=== PATIENT | female | born 1970 | race Caucasian/White ===

== ENCOUNTER 2022-09-17 08:37 | Outpatient (CLI) | payer OTHER, SELFPAY ==
[2022-09-17 19:22] LABS: Hematocrit 43.8 % (37.0-47.0); Hemoglobin 14.2 g/dL (12.0-15.0); Mean Corpuscular HGB Conc 32.4 g/dl (32-36); Mean Corpuscular Hemoglobin 30.7 pg (26-34); Mean Corpuscular Volume 94.8 fl (80-100); Mean Platelet Volume 10.1 fl (7.4-10.4); Platelet Count Result 242 k/mm3 (150-375); Red Blood Count 4.62 M/mm3 (4.2-5.4); Red Cell Distribution Width 12.6 % (11.5-14.5); White Blood Count 6.1 K/mm3 (4.5-10.0)
[2022-09-17 19:34] LABS: Hemoglobin A1C 5.4 % (<5.7)
[2022-09-17 19:50] LABS: Alanine Aminotransferase 22 U/L (6-35); Albumin Level 3.7 g/dL (3.5-5.1); Alkaline Phosphatase 65 U/L (38-126); Anion Gap 2 mmol/L (8-16); Aspartate Amino Transferase 25 U/L (14-36); Bilirubin,Total 0.8 mg/dL (0.2-1.3); Blood Urea Nitrogen 11 mg/dL (7-17); Calcium 8.3 mg/dL (8.4-10.2); Carbon Dioxide 27 mmol/L (22-30); Chloride 104 mmol/L (98-107); Cholesterol 231 mg/dL (0-200); Estimated Glomerular Filt Rate > 60; Glucose 85 mg/dL (65-110); HDL Direct 44 mg/dL; Potassium 3.8 mmol/L (3.4-5.0); Sodium 133 mmol/L (137-145); Triglycerides 106 mg/dL (<150)
[2022-09-17 20:03] LABS: Lymphocytes Absolute Manual 2.37 K/mm3 (1.1-4.5); Lymphocytes Percent Manual 39 % (18-44); Monocytes Absolute Manual 0.54 K/mm3 (0.1-0.90); Monocytes Percent Manual 9 % (3-9); Neutrophils Percent Manual 36 % (46-73); Total Cells Counted 100
[2022-09-17 20:04] LABS: Eosinophils Absolute Manual 0.97 K/mm3 (0.02-0.5); Eosinophils Percent Manual 16 % (0-4); LDL Cholesterol Direct 138 mg/dL; Platelet Estimate Adequate (Adequate); Schistocytes None Seen (NORMAL)
[2022-09-22 19:59] LABS: CRP, High Sensitivity 0.6 mg/L (***)
== END 2022-09-17 08:38 | disposition home or self-care (01) ==
LOC: ANHGOSHLAB 08:38
PROVIDERS: PCP Emergency Medicine; Visit Provider Emergency Medicine
DX: R07.9 Chest pain, unspecified (principal); R53.83 Other fatigue
CPT/HCPCS: 36415; 80053; 80061; 83036; 85025; 86141

== ENCOUNTER 2022-11-05 07:23 | Outpatient (CLI) | payer OTHER, SELFPAY ==
--- NOTE | 2022-11-05 07:43 | ECHO_ITS ---
Patient Info Name: Meggan Hutchinson Age: 51 years : 1970 Gender: Female Ht: 66 in Wt: 170 lbs BSA: 1.91 m2 HR: 62 bpm BP: 119 / 86 mmHg Heart Rhythm: Sinus Rhythm Exam Date: 11/05/2022 8:17 AM Exam Location: [facility] Patient Status: Outpatient Admit Date: 11/05/2022 Staff Ordering Physician: Ismael Donald MD Methods Analyst: Phong Medina, MEGHAN, RT Attending Provider: Ismael Donald MD Referring Physician: Shabana SINGLETARY; Exam Type: CA echo doppler color flow Study Info Indications R07.9 - Chest pain, unspecified Complete two-dimensional, color flow and Doppler transthoracic echocardiogram is performed. Strain analysis performed. Summary 1. Complete two-dimensional, color flow and Doppler transthoracic echocardiogram is performed. 2. Trivial amount of mitral valve regurgitation. 3. Otherwise unremarkable examination. Left Ventricle Left ventricular systolic function is normal, estimated at 55-60%. The left ventricular diastolic function is normal. Right Ventricle Right ventricular chamber dimension is normal. Left Atria Left atrial chamber dimension is normal. Right Atria Right atrial chamber dimension is normal. Aortic Valve The aortic valve is normal. Pulmonic Valve The pulmonic valve is normal. Mitral Valve The mitral valve has normal leaflets. There is trace mitral valve regurgitation. Tricuspid Valve The tricuspid valve leaflets are normal. Pericardium/Pleural The pericardium appears normal. Aorta The aortic root size at the sinus of Valsalva is normal. Left Ventricular Outflow Tract Name Value Normal LVOT 2D LVOT Diameter 2.0 cm LVOT Doppler LVOT Peak Gradient 3 mmHg LVOT Mean Gradient 2 mmHg LVOT VTI 20 cm LVOT VTI/AV VTI Ratio 0.9 LVOT Stroke Volume 62 ml LVOT CO 4.3 l/min LVOT CI 2.2 l/min/m2 Mitral Valve Name Value Normal MV Doppler MV Decel [place] 439 cm/s2 MV PHT 63 ms MV Area (PHT) 3.5 cm2 4.0-5.0 MV Diastolic Function MV E Peak Velocity 96 cm/s MV A Peak Velocity 80 cm/s MV E/A 1.2 MV Decel Time 219 ms MV Annular TDI MV E/e' (Septal) 12.4 <=8.0 MV E/e' (Lateral) 9.5 <=8.0 MV E/e' (Average) 10.9 Tricuspid Valve ------
--- NOTE | 2022-11-05 07:43 | EST_ITS ---
Patient Info Name: Meggan uHtchinson Age: 51 years : 1970 Gender: Female Ht: 66 in Wt: 170 lbs BSA: 1.91 m2 HR: 65 bpm BP: 116 / 77 mmHg Heart Rhythm: Sinus Rhythm Exam Date: 11/05/2022 8:57 AM Exam Location: [facility] Patient Status: Outpatient Admit Date: 11/05/2022 Staff Ordering Physician: Ismael Donald MD Attending Provider: Ismael Donald MD Exercise Technologist: Melva Maria CT Nurse: JONNY GRIFFITHS Exam Type: CA stress test treadmill Study Info Indications R07.9 - Chest pain, unspecified A treadmill exercise stress test was performed. Summary 1. Normal sinus rhythm. 2. Low QRS voltage. 3. No abnormal ST/T wave changes with exercise. 4. None. 5. Clinically and electrocardiographically negative exercise stress test at 95% of age predicted maximum heart rate. Protocol: [facility] ECG Details Stage: REST Duration (min): 0 min : 51 sec Speed (mph): 0.0 Grade (%): 0 HR (bpm): 67 SBP (mmHg): 116 DBP (mmHg): 77 METS: --- Stage: REST Duration (min): 12 min : 44 sec Speed (mph): 0.0 Grade (%): 0 HR (bpm): 69 SBP (mmHg): 116 DBP (mmHg): 77 METS: --- Stage: STAGE 1 Duration (min): 1 min : 0 sec Speed (mph): 1.7 Grade (%): 10 HR (bpm): 111 SBP (mmHg): 116 DBP (mmHg): 77 METS: --- Stage: STAGE 1 Duration (min): 2 min : 0 sec Speed (mph): 1.7 Grade (%): 10 HR (bpm): 117 SBP (mmHg): 116 DBP (mmHg): 77 METS: --- Stage: STAGE 1 Duration (min): 3 min : 0 sec Speed (mph): 1.7 Grade (%): 10 HR (bpm): 118 SBP (mmHg): 153 DBP (mmHg): 79 METS: --- Stage: STAGE 2 Duration (min): 1 min : 0 sec Speed (mph): 2.5 Grade (%): 12 HR (bpm): 134 SBP (mmHg): 153 DBP (mmHg): 79 METS: --- Stage: STAGE 2 Duration (min): 2 min : 0 sec Speed (mph): 2.5 Grade (%): 12 HR (bpm): 140 SBP (mmHg): 163 DBP (mmHg): 80 METS: --- Stage: STAGE 2 Duration (min): 3 min : 0 sec Speed (mph): 2.5 Grade (%): 12 HR (bpm): 147 SBP (mmHg): 163 DBP (mmHg): 80 METS: --- Stage: STAGE 3 Duration (min): 1 min : 0 sec Speed (mph): 3.4 Grade (%): 14 HR (bpm): 152 SBP (mmHg): 163 DBP (mmHg): 80 METS: --- Stage: STAGE 3 Duration (min): 2 min : 0 sec Speed (mph): 3.4 Grade (%): 14 HR (bpm): 160 SBP (mmHg): 164 DBP (mmHg): 71 METS: --- Stage: STAGE 3 Duration (min): 2 min : 2 sec Speed (mph): 3.4 Grade (%): 14 HR (bpm): 159 SBP (mmHg): 164 DBP (mmHg): 71 METS: --- Stage: RECOVERY Duration (min): 0 min : 57 sec Speed (mph): 0.0 Grade (%): 0 HR (bpm): 133 SBP (mmHg): 155 DBP (mmHg): 68 METS: --- Stage: RECOVERY Duration (min): 1 min : 57 sec Speed (mph): 0.0 Grade (%): 0 HR (bpm): 106
== END 2022-11-05 07:24 | disposition home or self-care (01) ==
PROVIDERS: PCP Emergency Medicine; Visit Provider Emergency Medicine
DX: R07.9 Chest pain, unspecified (principal)
CPT/HCPCS: 93017; 93306

== ENCOUNTER 2022-11-29 08:23 | Outpatient (NON) | payer OTHER, SELFPAY | END 2022-11-29 08:24 | disposition home or self-care (01) | LOC: ANHLAB 11-30 08:25 | PROVIDERS: PCP Emergency Medicine; Visit Provider Internal Medicine Gastroenterology | DX: Z12.11 Encounter for screening for malignant neoplasm of colon (principal); D12.5 Benign neoplasm of sigmoid colon | CPT/HCPCS: 88305 ==

== ENCOUNTER 2022-11-29 10:31 | Day surgery (SDC) | payer OTHER, SELFPAY ==
[2022-11-19 08:44] VITALS: BMI 27.3
[2022-11-29 10:47] VITALS: BP 123/66; PULSE 86; RESP 20; TEMP 36.7; O2SAT 100
[2022-11-29] MEDS: LACTATED RINGERS 1,000 ML 150 ML IV CONT (10:57)
--- NOTE | 2022-11-29 11:03 | WPDANESEPPF ---
Anes - Initial Pre Proc Eval Procedure: Operation Date: 11/29/22 14:00 Proposed Procedures p Screening Colonoscopy - Miguel Avina MD Date/Time: 11/29/22 11:03 Surgeon: Miguel Avina MD Pre Op Diagnosis: Neoplasm Screening Patient Data Age: 52 Gender: F Height: 1.68 m Weight: 77.8 kg Last Vital Signs Temp 36.7 C 11/29/22 10:47 Pulse 86 11/29/22 10:47 Resp 20 11/29/22 10:47 BP 123/66 11/29/22 10:47 Pulse Ox 100 11/29/22 10:47 O2 Del Method Room Air 11/29/22 10:47 Allergies Allergy/AdvReac Type Severity Reaction Status Date / Time No Known Allergies Allergy Mild Verified 11/29/22 10:46 Home Medications Medication Instructions Recorded Confirmed Type alprazolam 0.5 mg tablet 0.5 mg PO DAILY PRN anxiety #30 07/29/22 11/29/22 Rx tabs calcium carbonate 500 mg calcium 500 mg PO DAILY 09/03/22 11/29/22 History (1,250 mg) chewable tablet (Calcium 500) fexofenadine 180 mg tablet 180 mg PO DAILY 09/03/22 11/29/22 History (Mariluz Allergy) fluticasone propionate 50 1 spray intranasal DAILY 09/03/22 11/29/22 History mcg/actuation nasal spray,suspension (Flonase Allergy Relief) vitamin E (dl, acetate) 45 mg (100 45 mg PO DAILY 09/03/22 11/29/22 History unit) capsule methylprednisolone 4 mg tablets in See Rx Instructions PO PER PKG DIR 09/07/22 11/29/22 Rx a dose pack (Medrol (Mack)) #21 ea Patient hx anesthesia problems: none Family hx anesthesia problems: none Results Review: All pre-operative results and documents have been reviewed as part of the pre-operative evaluation. [facility] Past Medical History Medical History Abdominal mass (~2000) Generalized anxiety disorder Family History Family History Father Family history of elevated blood lipids Mother Family history of lung cancer Social History Social History Smoking status: Never smoker Alcohol intake: current Drinks per week: 4 Alcohol use details: wine Substance use: never Substance use type: does not use Lack of Transportation: No Lack of Food: Never True Current Housing: I Have Housing Concerned About Future Housing: No Difficulty Paying Gas/Electric Bills: No Difficulty Paying for Meds: No Currently Unemployed: No Education: Bachelor's Degree Difficulty w/ Childcare or Family Care: No Living arrangements: with family Spiritual care concerns: No Anes - Eval Final PreProcedure Day of Procedure 11/29/22 11:03 Patient weight: overweight Heart: regular rate and rhythm Lungs: clear to auscultation Airway: Mallampati scale class II Neurological: alert and oriented Last oral intake: >/= 8 hours ASA classification: II Emergent: no Anesthetic plan: proceed Anesthesia type and monitoring: general GIVS and standard monitoring Results Review: All pre-operative results and documents have been reviewed as part of the pre-operative evaluation. Informed Consent: The patient's anesthetic plan and its attendant risks and benefits were discussed with the patient/family/POA. Questions were solicited and answers provided to the satisfaction of the patient/family/POA.
--- NOTE | 2022-11-29 11:16 | PM.HPGS ---
History of Present Illness History of Present Illness Consent: Risks, benefits, and alternatives have been discussed and questions answered. Patient agrees to proceed with procedure. Chief complaint: Neoplasm Screening Narrative: Meggan Hutchinson is a 52 year old female here for first screening colonoscopy Review of Systems Constitutional: Constitutional: Denies headache(s) and Denies weakness Eyes: Eyes: Denies blurry vision ENT: Reports Normal hearing present, Denies headache(s) and Denies neck pain Cardiovascular: Cardiovascular: Denies chest pain and Denies dyspnea Respiratory: Respiratory: Denies dyspnea Gastrointestinal: Gastrointestinal: Reports no additional gastrointestinal complaints Genitourinary: Genitourinary: Denies dysuria Musculoskeletal: Musculoskeletal: Denies neck pain Integumentary/Breasts: Skin/Breast: Denies dry skin Neurologic: Reports Normal hearing present, Denies headache(s) and Denies weakness Psychiatric: Psychiatric: Denies anxiety Endocrine: Endocrine: Denies change in body appearance Hematologic/Lymphatic: Hematologic/Lymphatic: Denies easy bleeding Allergic/Immunologic: Allergic/Immunologic: Denies urticaria PMF Past Medical History Medical History (Updated 11/29/22 @ 11:17 by Miguel Avina MD) Abdominal mass (~2000) Colon cancer screening Generalized anxiety disorder Family History Family History Father Family history of elevated blood lipids Mother Family history of lung cancer Social History Social History Smoking status: Never smoker Alcohol intake: current Drinks per week: 4 Alcohol use details: wine Substance use: never Substance use type: does not use Lack of Transportation: No Lack of Food: Never True Current Housing: I Have Housing Concerned About Future Housing: No Difficulty Paying Gas/Electric Bills: No Difficulty Paying for Meds: No Currently Unemployed: No Education: Bachelor's Degree Difficulty w/ Childcare or Family Care: No Living arrangements: with family Spiritual care concerns: No Meds Home Medications and Allergies Home Medications Medication Instructions Recorded Confirmed Type alprazolam 0.5 mg tablet 0.5 mg PO DAILY PRN anxiety #30 07/29/22 11/29/22 Rx tabs calcium carbonate 500 mg calcium 500 mg PO DAILY 09/03/22 11/29/22 History (1,250 mg) chewable tablet (Calcium 500) fexofenadine 180 mg tablet 180 mg PO DAILY 09/03/22 11/29/22 History (Mariluz Allergy) fluticasone propionate 50 1 spray intranasal DAILY 09/03/22 11/29/22 History mcg/actuation nasal spray,suspension (Flonase Allergy Relief) vitamin E (dl, acetate) 45 mg (100 45 mg PO DAILY 09/03/22 11/29/22 History unit) capsule methylprednisolone 4 mg tablets in See Rx Instructions PO PER PKG DIR 09/07/22 11/29/22 Rx a dose pack (Medrol (Mack)) #21 ea Allergies Allergy/AdvReac Type Severity Reaction Status Date / Time No Known Allergies Allergy Mild Verified 11/29/22 10:46 Vital Signs Vital Signs - 24 hr 11/29/22 10:47 Temperature 98.0 F Pulse Rate 86 Respiratory Rate 20 Blood Pressure 123/66 Pulse Oximetry 100 Oxygen Delivery Room Air Exam Const: General: comfortable and no acute distress HENMT: Face/Nose/Sinus: Normal nares present Eyes: General: appearance normal, both eyes and all related structures Neck: Neck: no JVD Resp: Auscultation: clear to auscultation bilaterally Cardio: Rate: regular rate Rhythm: regular rhythm GI: Inspection: non-distended GI Palp: Yes Soft to palpation Skin: General skin exam: normal color Neuro: General: gait normal Speech: normal speech Extrem: General: normal to inspection Psych: Mental Status: mental status grossly normal Assessment and Plan Assessment and plan (1) Colon cancer screening:
[2022-11-29 11:36] VITALS: BP 113/73; PULSE 84; RESP 16; O2SAT 100
[2022-11-29 11:46] VITALS: BP 111/76; PULSE 64; RESP 16; O2SAT 100
--- NOTE | 2022-11-29 11:49 | WPDANESPN ---
Anes - Prog Note Post-Op Date/Time: 11/29/22 11:49 Cardiovascular status: normal Respiratory status: normal Airway patency: baseline Mental status: baseline Post-Op hydration status: normal Vital Signs: Last Vital Signs Temp 36.7 C 11/29/22 10:47 Pulse 86 11/29/22 10:47 Resp 20 11/29/22 10:47 BP 123/66 11/29/22 10:47 Pulse Ox 100 11/29/22 10:47 O2 Del Method Room Air 11/29/22 10:47 Pain Score (VAS): 0/10 I/O: Intake & Output 11/28/22 11/29/22 11/29/22 23:59 07:59 15:59 Intake Total 300 Balance 300 Patient Feedback: Patient satisfied with anesthetic care.
[2022-11-29 11:56] VITALS: BP 121/73; PULSE 63; RESP 18; O2SAT 100
== END 2022-11-29 12:14 | disposition home or self-care (01) ==
PROVIDERS: PCP Emergency Medicine; Visit Provider Internal Medicine Gastroenterology
PROC: 0DJD8ZZ Inspection of Lower Intestinal Tract, Via Natural or Artificial Opening Endoscopic (ICD-10-PCS; CPT 45378; principal; 2022-11-29 14:00)
DX: Z12.11 Encounter for screening for malignant neoplasm of colon (principal)
CPT/HCPCS: 45385

== ENCOUNTER 2023-09-30 13:36 | Outpatient (CLI) | payer OTHER, SELFPAY ==
[2023-09-30 18:10] LABS: Alanine Aminotransferase 12 U/L (6-35); Albumin Level 4.1 g/dL (3.5-5.1); Alkaline Phosphatase 66 U/L (38-126); Anion Gap 6 mmol/L (8-16); Aspartate Amino Transferase 26 U/L (14-36); Bilirubin,Total 0.7 mg/dL (0.2-1.3); Blood Urea Nitrogen 12 mg/dL (7-17); Calcium 9.1 mg/dL (8.4-10.2); Carbon Dioxide 27 mmol/L (22-30); Chloride 104 mmol/L (98-107); Estimated Glomerular Filt Rate > 60; Glucose 86 mg/dL (65-110); Potassium 4.1 mmol/L (3.4-5.0); Sodium 137 mmol/L (137-145)
== END 2023-09-30 13:37 | disposition home or self-care (01) ==
LOC: ANHGOSHLAB 13:37
PROVIDERS: PCP Emergency Medicine; Visit Provider Emergency Medicine
DX: E78.00 Pure hypercholesterolemia, unspecified (principal)
CPT/HCPCS: 36415; 80053

== ENCOUNTER 2024-01-30 05:52 | Day surgery (SDC) | payer OTHER, SELFPAY ==
[2023-12-08 13:07] VITALS: BMI 18.3
--- NOTE | 2024-01-24 14:42 | PM.HPGS ---
History of Present Illness History of Present Illness Consent: Risks, benefits, and alternatives have been discussed and questions answered. Patient agrees to proceed with procedure. Chief complaint: History of colon polyps Narrative: Meggan Hutchinson is a 53 year old female at colonoscopy with removal which was an adenoma with high-grade dysplasia. This was a little more than 1 year ago. She returns now for surveillance colonoscopy. Review of Systems Review of Systems: All systems reviewed & are unremarkable except as noted in HPI and below PMFSH Past Medical History Medical History Abdominal mass (~2000) Colon cancer screening Generalized anxiety disorder Family History Family History Father Family history of elevated blood lipids Mother Family history of lung cancer Social History Social History Smoking status: Never smoker Alcohol intake: current Drinks per week: 4 Alcohol use details: wine Substance use: never Substance use type: does not use Lack of Transportation: No Lack of Food: Never True Current Housing: I Have Housing Concerned About Future Housing: No Difficulty Paying Gas/Electric Bills: No Difficulty Paying for Meds: No Currently Unemployed: No Education: Bachelor's Degree Difficulty w/ Childcare or Family Care: No Living arrangements: with family Spiritual care concerns: No Meds Home Medications and Allergies Home Medications Medication Instructions Recorded Confirmed Type calcium carbonate (Calcium 500) 500 mg PO DAILY 09/03/22 01/30/24 History fexofenadine 180 mg tablet 180 mg PO DAILY 09/03/22 01/30/24 History (Mariluz Allergy) fluticasone propionate 50 1 spray intranasal DAILY 09/03/22 01/30/24 History mcg/actuation nasal spray,suspension (Flonase Allergy Relief) vitamin E (dl, acetate) 45 mg (100 45 mg PO DAILY 09/03/22 01/30/24 History unit) capsule cholecalciferol (vitamin D3) 25 25 mcg PO DAILY 09/08/23 01/30/24 History mcg (1,000 unit) capsule triamcinolone acetonide 0.1 % 1 applic topical DAILY #80 grams 09/08/23 01/30/24 Rx topical ointment alprazolam 0.5 mg tablet 0.5 mg PO DAILY PRN anxiety #30 01/23/24 01/30/24 Rx tabs Allergies Allergy/AdvReac Type Severity Reaction Status Date / Time No Known Allergies Allergy Mild Verified 01/30/24 06:13 Exam Resp: Auscultation: clear to auscultation bilaterally Cardio: Rate: regular rate Rhythm: regular rhythm GI: GI Palp: Yes Soft to palpation and No Tenderness to palpation present (GI) Assessment and Plan Assessment and plan (1) Colon cancer screening: Code(s): Z12.11 - Encounter for screening for malignant neoplasm of colon Status: Acute Assessment and Plan: Colonoscopy with possible biopsy or polypectomy or cautery or injection of substances.
[2024-01-30 06:16] VITALS: BP 126/94; PULSE 73; RESP 16; TEMP 36.1; O2SAT 100
--- NOTE | 2024-01-30 06:34 | WPDANESEPPF ---
Anes - Initial Pre Proc Eval Procedure: Operation Date: 01/30/24 07:30 Proposed Procedures p Diagnostic Colonoscopy - Yoel Alvarez MD Date/Time: 01/30/24 06:34 Surgeon: Yoel Alvarez MD Pre Op Diagnosis: History of colon polyps Patient Data Age: 53 Gender: F Height: 1.69 m Weight: 78 kg Last Vital Signs Temp 36.1 C L 01/30/24 06:16 Pulse 73 01/30/24 06:16 Resp 16 01/30/24 06:16 BP 126/94 H 01/30/24 06:16 Pulse Ox 100 01/30/24 06:16 O2 Del Method Room Air 01/30/24 06:16 Allergies Allergy/AdvReac Type Severity Reaction Status Date / Time No Known Allergies Allergy Mild Verified 01/30/24 06:13 Home Medications Medication Instructions Recorded Confirmed Type calcium carbonate (Calcium 500) 500 mg PO DAILY 09/03/22 01/30/24 History fexofenadine 180 mg tablet 180 mg PO DAILY 09/03/22 01/30/24 History (Mariluz Allergy) fluticasone propionate 50 1 spray intranasal DAILY 09/03/22 01/30/24 History mcg/actuation nasal spray,suspension (Flonase Allergy Relief) vitamin E (dl, acetate) 45 mg (100 45 mg PO DAILY 09/03/22 01/30/24 History unit) capsule cholecalciferol (vitamin D3) 25 25 mcg PO DAILY 09/08/23 01/30/24 History mcg (1,000 unit) capsule triamcinolone acetonide 0.1 % 1 applic topical DAILY #80 grams 09/08/23 01/30/24 Rx topical ointment alprazolam 0.5 mg tablet 0.5 mg PO DAILY PRN anxiety #30 01/23/24 01/30/24 Rx tabs Results Review: All pre-operative results and documents have been reviewed as part of the pre-operative evaluation. [facility] Past Medical History Medical History Abdominal mass (~2000) Colon cancer screening Generalized anxiety disorder Family History Family History Father Family history of elevated blood lipids Mother Family history of lung cancer Social History Social History Smoking status: Never smoker Alcohol intake: current Drinks per week: 4 Alcohol use details: wine Substance use: never Substance use type: does not use Lack of Transportation: No Lack of Food: Never True Current Housing: I Have Housing Concerned About Future Housing: No Difficulty Paying Gas/Electric Bills: No Difficulty Paying for Meds: No Currently Unemployed: No Education: Bachelor's Degree Difficulty w/ Childcare or Family Care: No Living arrangements: with family Spiritual care concerns: No Anes - Eval Final PreProcedure Day of Procedure 01/30/24 06:34 Patient weight: overweight Heart: regular rate and rhythm Lungs: clear to auscultation Airway: Mallampati scale class II Neurological: alert and oriented Last oral intake: >/= 8 hours ASA classification: II Emergent: no Anesthetic plan: proceed Anesthesia type and monitoring: general GIVS and standard monitoring Results Review: All pre-operative results and documents have been reviewed as part of the pre-operative evaluation. Informed Consent: The patient's anesthetic plan and its attendant risks and benefits were discussed with the patient/family/POA. Questions were solicited and answers provided to the satisfaction of the patient/family/POA.
[2024-01-30] MEDS: LACTATED RINGERS 1,000 ML 150 ML IV CONT (06:50)
--- NOTE | 2024-01-30 07:16 | WPDANESEPPF ---
Anes - Initial Pre Proc Eval Procedure: Operation Date: 01/30/24 07:30 Proposed Procedures p Diagnostic Colonoscopy - Yoel Alvarez MD Date/Time: 01/30/24 07:16 Surgeon: Yoel Alvarez MD Pre Op Diagnosis: History of colon polyps Patient Data Age: 53 Gender: F Height: 1.69 m Weight: 78 kg Last Vital Signs Temp 36.1 C L 01/30/24 06:16 Pulse 73 01/30/24 06:16 Resp 16 01/30/24 06:16 BP 126/94 H 01/30/24 06:16 Pulse Ox 100 01/30/24 06:16 O2 Del Method Room Air 01/30/24 06:16 Allergies Allergy/AdvReac Type Severity Reaction Status Date / Time No Known Allergies Allergy Mild Verified 01/30/24 06:13 Home Medications Medication Instructions Recorded Confirmed Type calcium carbonate (Calcium 500) 500 mg PO DAILY 09/03/22 01/30/24 History fexofenadine 180 mg tablet 180 mg PO DAILY 09/03/22 01/30/24 History (Mariluz Allergy) fluticasone propionate 50 1 spray intranasal DAILY 09/03/22 01/30/24 History mcg/actuation nasal spray,suspension (Flonase Allergy Relief) vitamin E (dl, acetate) 45 mg (100 45 mg PO DAILY 09/03/22 01/30/24 History unit) capsule cholecalciferol (vitamin D3) 25 25 mcg PO DAILY 09/08/23 01/30/24 History mcg (1,000 unit) capsule triamcinolone acetonide 0.1 % 1 applic topical DAILY #80 grams 09/08/23 01/30/24 Rx topical ointment alprazolam 0.5 mg tablet 0.5 mg PO DAILY PRN anxiety #30 01/23/24 01/30/24 Rx tabs Patient hx anesthesia problems: none Family hx anesthesia problems: none Results Review: All pre-operative results and documents have been reviewed as part of the pre-operative evaluation. [facility] Past Medical History Medical History Abdominal mass (~2000) Colon cancer screening Generalized anxiety disorder Family History Family History Father Family history of elevated blood lipids Mother Family history of lung cancer Social History Social History Smoking status: Never smoker Alcohol intake: current Drinks per week: 4 Alcohol use details: wine Substance use: never Substance use type: does not use Lack of Transportation: No Lack of Food: Never True Current Housing: I Have Housing Concerned About Future Housing: No Difficulty Paying Gas/Electric Bills: No Difficulty Paying for Meds: No Currently Unemployed: No Education: Bachelor's Degree Difficulty w/ Childcare or Family Care: No Living arrangements: with family Spiritual care concerns: No Anes - Eval Final PreProcedure Day of Procedure 01/30/24 07:16 Patient weight: overweight Heart: regular rate and rhythm Lungs: clear to auscultation Airway: Mallampati scale class II Neurological: alert and oriented Last oral intake: >/= 8 hours ASA classification: II Emergent: no Anesthetic plan: proceed Anesthesia type and monitoring: general GIVS and standard monitoring Results Review: All pre-operative results and documents have been reviewed as part of the pre-operative evaluation. Informed Consent: The patient's anesthetic plan and its attendant risks and benefits were discussed with the patient/family/POA. Questions were solicited and answers provided to the satisfaction of the patient/family/POA.
[2024-01-30 07:46] VITALS: BP 121/59; PULSE 71; RESP 16; O2SAT 99
[2024-01-30 07:56] VITALS: BP 114/78; PULSE 76; RESP 16; O2SAT 100
--- NOTE | 2024-01-30 07:56 | WPDANESPN ---
Anes - Prog Note Post-Op Date/Time: 01/30/24 07:56 Cardiovascular status: normal Respiratory status: normal Airway patency: baseline Mental status: baseline Post-Op hydration status: normal Vital Signs: Last Vital Signs Temp 36.1 C L 01/30/24 06:16 Pulse 71 01/30/24 07:46 Resp 16 01/30/24 07:46 BP 121/59 L 01/30/24 07:46 Pulse Ox 99 01/30/24 07:46 O2 Del Method Room Air 01/30/24 07:46 Pain Score (VAS): 0/10 I/O: Intake & Output 01/29/24 01/29/24 01/30/24 15:59 23:59 07:59 Intake Total 300 Balance 300 Patient Feedback: Patient satisfied with anesthetic care.
== END 2024-01-30 08:15 | disposition home or self-care (01) ==
PROVIDERS: PCP Emergency Medicine; Visit Provider Internal Medicine Gastroenterology
PROC: 0DJD8ZZ Inspection of Lower Intestinal Tract, Via Natural or Artificial Opening Endoscopic (ICD-10-PCS; CPT 45378; principal; 2024-01-30 07:30)
DX: Z86.010 Personal history of colon polyps (principal); K57.30 Diverticulosis of large intestine without perforation or abscess without bleeding; K64.8 Other hemorrhoids
CPT/HCPCS: 45378

== ENCOUNTER 2024-02-04 18:08 | Emergency (ER) | payer OTHER, SELFPAY ==
[2024-02-04 18:15] VITALS: BP 143/86; PULSE 83; RESP 20; TEMP 36.5; O2SAT 100
[2024-02-04 18:24] VITALS: O2SAT 100
--- NOTE | 2024-02-04 18:41 | ED.ALLEREA ---
HPI - Allergic Reaction General Chief complaint: Allergic Reaction Stated complaint: hives after taking flagyl Time Seen by Provider: 02/04/24 18:34 Source: patient and family Mode of arrival: ambulatory Limitations: no limitations History of Present Illness HPI narrative: patient presents with hives all body. Patient has been taking 500 mg b.i.d. p.o. Flagyl since Tuesday for a diagnosis of bacterial vaginosis. She has had bacterial vaginosis previously in taking this medication incident before. She also felt some slight difficulty clearing her throat denies any shortness breath. She denies any amira diarrhea although she did have some loose stool this morning which she had attributed to general side allergic reaction to the Flagyl Verses the fact she underwent a colonoscopy earlier in the week. Has no other known allergies Except to cat dander for which she takes Claritin every morning and Mariluz every evening. She denies any other changes in foods soaps, or detergents. No other household members with similar symptoms. It started on her arms. Patient had poison sumac past year without may be was this given it she was it quickly started spreading across her body. she took 50 mg of Benadryl just prior to coming to the emergency department she states that that was her 3rd such does today. Related Data Home Medications Medication Instructions Recorded Confirmed calcium carbonate (Calcium 500) 500 mg PO DAILY 09/03/22 01/30/24 fexofenadine 180 mg tablet 180 mg PO DAILY 09/03/22 01/30/24 (Mariluz Allergy) fluticasone propionate 50 1 spray intranasal DAILY 09/03/22 01/30/24 mcg/actuation nasal spray,suspension (Flonase Allergy Relief) vitamin E (dl, acetate) 45 mg (100 45 mg PO DAILY 09/03/22 01/30/24 unit) capsule cholecalciferol (vitamin D3) 25 25 mcg PO DAILY 09/08/23 01/30/24 mcg (1,000 unit) capsule Allergies Allergy/AdvReac Type Severity Reaction Status Date / Time metronidazole [From Flagyl] AdvReac Hives Verified 02/04/24 18:18 [facility] Past Medical History Medical History (Updated 02/05/24 @ 09:45 by Reyna Packer MD) Abdominal mass (~2000) Bacterial vaginosis Colon cancer screening Generalized anxiety disorder Surgical History Surgical History (Updated 02/05/24 @ 09:44 by Reyna Packer MD) History of colonoscopy January 2024 Family History Family History Father Family history of elevated blood lipids Mother Family history of lung cancer Social History Social History (Updated 02/05/24 @ 09:44 by Reyna Packer MD) Social History: Smoking status: Never smoker Alcohol intake: current Drinks per week: 4 Alcohol use details: wine Substance use: never Substance use type: does not use Lack of Transportation: No Lack of Food: Never True Current Housing: I Have Housing Concerned About Future Housing: No Difficulty Paying Gas/Electric Bills: No Difficulty Paying for Meds: No Currently Unemployed: No Education: Bachelor's Degree Difficulty w/ Childcare or Family Care: No Living arrangements: with family Spiritual care concerns: No Exam Narrative: GENERAL: Well-appearing, well-nourished, and in no acute distress. HEAD: Normocephalic, atraumatic. EYES: Non injected, non icteric ENT: Nares clear, no rhinorrhea or epistaxis. Normal posterior oropharynx without erythema, edema. patient does have a very long and slender uvula; notably no uvular edema NECK: Supple. CHEST: Speaking in full sentences. No respiratory distress. lungs clear to auscultation without bronchospasm or stridor. HEART: Regular rate and rhythm. . ABDOMEN: Soft, nondistended. EXTREMITIES: Normal range of motion. No edema. SKIN: Warm, dry. Scattered urticaria across bilateral lower extremities (especially proximal thighs) and to a lesser extent on arms. Also has these findings on bilater
[2024-02-04] MEDS: predniSONE 20 MG TABLET 60 MG PO (19:13)
[2024-02-04] MEDS: FAMOTIDINE 20 MG TABLET 40 MG PO (19:13)
[2024-02-04 20:29] VITALS: BP 129/67; PULSE 57; RESP 16; O2SAT 100
== END 2024-02-04 20:30 | disposition home or self-care (01) ==
PROVIDERS: Emergency Provider Student in an Organized Health Care Education/Training Program; PCP Emergency Medicine
DX: L50.0 Allergic urticaria (principal); T37.3X5A Adverse effect of other antiprotozoal drugs, initial encounter
CPT/HCPCS: 99283; A9270; J7512

== ENCOUNTER 2024-11-09 08:55 | Outpatient (CLI) | payer OTHER, SELFPAY ==
--- OUTSIDE RECORDS SUMMARY | 2024-11-09 09:15 | XMS_ITS | Encounter Summary ---
Author Organization [facility] Address [address] [place] [address] Care Team Providers Care Systems Designer Name Role Phone Hossein De Guzman MD Primary Care Provider [phone] Encounter Details Date Type Department Care Team (Late st Contact Info) Description 03/29/2006 Outpatient Historical [facility]'s 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
--- OUTSIDE RECORDS SUMMARY | 2024-11-09 09:15 | XMS_ITS | Encounter Summary ---
Author Organization [facility] Address [address] [place] [address] Care Team Providers Care College Instructor Name Role Phone Hossein De Guzman MD Primary Care Provider [phone] Encounter Details Date Type Department Care Team (Late st Contact Info) Description 11/25/2006 Outpatient Historical [facility]'s [facility] Medical [place] [address] [place] [address] Torie Puckett MD [address] [address] Social History Tobacco Use Types Packs/Day Years Used Date Smoking Tobacco: Never Assessed Comments Unknown Sex and Gender Information Value Date Recorded Sex Assigned at Not on file Legal Sex Female 3:05 AM GERIATRIC CARE MANAGER Gender Identity Not on file Sexual Orientation Not on file documented as of this encounter Plan of Treatment Not on file documented as of this encounter Visit Diagnoses Not on filedocumented in this encounter Care Teams College Instructor Relationship Specialty Start Date End Date Hossein De Guzman MD [address] [phone] PCP - General Family Practice 07/29/17 documented as of this encounter
--- OUTSIDE RECORDS SUMMARY | 2024-11-09 09:15 | XMS_ITS | Encounter Summary ---
Author Organization [facility] Address [address] [place] [address] Care Team Providers Care Airplane And Engine Inspector Name Role Phone Hossein De Guzman MD Primary Care Provider [phone] Encounter Details Date Type Department Care Team (Late st Contact Info) Description 10/25/2003 Outpatient Historical [facility]'s [facility] Medical [place] [address] [place] [address] Torie Puckett MD [address] [address] Social History Tobacco Use Types Packs/Day Years Used Date Smoking Tobacco: Never Assessed Comments Unknown Sex and Gender Information Value Date Recorded Sex Assigned at Not on file Legal Sex Female 3:05 AM AUTOMOBILE CLUB INFORMATION CLERK Gender Identity Not on file Sexual Orientation Not on file documented as of this encounter Plan of Treatment Not on file documented as of this encounter Visit Diagnoses Not on filedocumented in this encounter Care Teams Airplane And Engine Inspector Relationship Specialty Start Date End Date Hossein De Guzman MD [address] [place] [phone] PCP - General Family Practice 07/29/17 documented as of this encounter
--- OUTSIDE RECORDS SUMMARY | 2024-11-09 09:15 | XMS_ITS | Encounter Summary ---
Author Organization [facility] Address [address] [place] [address] Care Team Providers Care Film Flat Inspector Name Role Phone Hossein De Guzman MD Primary Care Provider [phone] Encounter Details Date Type Department Care Team (Late st Contact Info) Description 03/17/2007 Outpatient Historical [facility]'s [facility] Medical [place] [address] [place] [address] Torie Puckett MD [address] [address] Social History Tobacco Use Types Packs/Day Years Used Date Smoking Tobacco: Never Assessed Comments Unknown Sex and Gender Information Value Date Recorded Sex Assigned at Not on file Legal Sex Female 3:05 AM MILLED RUBBER TENDER Gender Identity Not on file Sexual Orientation Not on file documented as of this encounter Plan of Treatment Not on file documented as of this encounter Visit Diagnoses Not on filedocumented in this encounter Care Teams Film Flat Inspector Relationship Specialty Start Date End Date Hossein De Guzman MD [address] [place] [phone] PCP - General Family Practice 07/29/17 documented as of this encounter
--- OUTSIDE RECORDS SUMMARY | 2024-11-09 09:15 | XMS_ITS | Encounter Summary ---
Author Organization [facility] Address [address] [place] [address] Care Team Providers Care Appliance Adjuster Name Role Phone Hossein De Guzman MD Primary Care Provider [phone] Encounter Details Date Type Department Care Team (Late st Contact Info) Description 01/20/2007 Outpatient Historical [facility]'s [facility] Medical [place] [address] [place] [address] Torie Puckett MD [address] [address] Social History Tobacco Use Types Packs/Day Years Used Date Smoking Tobacco: Never Assessed Comments Unknown Sex and Gender Information Value Date Recorded Sex Assigned at Not on file Legal Sex Female 3:05 AM SACK KEEPER Gender Identity Not on file Sexual Orientation Not on file documented as of this encounter Plan of Treatment Not on file documented as of this encounter Visit Diagnoses Not on filedocumented in this encounter Care Teams Appliance Adjuster Relationship Specialty Start Date End Date Hossein De Guzman MD [address] [place] [phone] PCP - General Family Practice 07/29/17 documented as of this encounter
--- OUTSIDE RECORDS SUMMARY | 2024-11-09 09:15 | XMS_ITS | Encounter Summary ---
Author Organization [facility] Address [address] [place] [address] Care Team Providers Care Bridge Manager Name Role Phone Hossein De Guzman MD Primary Care Provider [phone] Encounter Details Date Type Department Care Team (Late st Contact Info) Description 12/01/1999 Outpatient Historical [facility]'s [facility] [address] [place] [address] Torie Puckett MD [address] [address] Social History Tobacco Use Types Packs/Day Years Used Date Smoking Tobacco: Never Assessed Comments Unknown Sex and Gender Information Value Date Recorded Sex Assigned at Not on file Legal Sex Female 3:05 AM FIREBRICK LAYER HELPER Gender Identity Not on file Sexual Orientation Not on file documented as of this encounter Plan of Treatment Not on file documented as of this encounter Visit Diagnoses Not on filedocumented in this encounter Care Teams Bridge Manager Relationship Specialty Start Date End Date Hossein De Guzman MD [address] [place] [address] PCP - General Family Practice 07/29/17 documented as of this encounter
--- OUTSIDE RECORDS SUMMARY | 2024-11-09 09:15 | XMS_ITS | Encounter Summary ---
Author Organization [facility] Address [address] [place] [address] Care Team Providers Care School Patrol Name Role Phone Hossein De Guzman MD Primary Care Provider [phone] Encounter Details Date Type Department Care Team (Late st Contact Info) Description 10/11/2000 Outpatient Historical [facility]'s [facility] Medical [place] [address] [place] [address] Torie Puckett MD [address] [address] Social History Tobacco Use Types Packs/Day Years Used Date Smoking Tobacco: Never Assessed Comments Unknown Sex and Gender Information Value Date Recorded Sex Assigned at Not on file Legal Sex Female 3:05 AM EMBEDDED SYSTEMS DESIGNER Gender Identity Not on file Sexual Orientation Not on file documented as of this encounter Plan of Treatment Not on file documented as of this encounter Visit Diagnoses Not on filedocumented in this encounter Care Teams School Patrol Relationship Specialty Start Date End Date Hossein De Guzman MD [address] [place] [phone] PCP - General Family Practice 07/29/17 documented as of this encounter
--- OUTSIDE RECORDS SUMMARY | 2024-11-09 09:15 | XMS_ITS | Encounter Summary ---
Author Organization [facility] Address [address] [place] [address] Care Team Providers Care Supervisory Lifeguard Name Role Phone Hossein De Guzman MD Primary Care Provider [phone] Encounter Details Date Type Department Care Team (Late st Contact Info) Description 12/23/2006 Outpatient Historical [facility]'s [facility] Medical [place] [address] [place] [address] Torie Puckett MD [address] [address] Social History Tobacco Use Types Packs/Day Years Used Date Smoking Tobacco: Never Assessed Comments Unknown Sex and Gender Information Value Date Recorded Sex Assigned at Not on file Legal Sex Female 3:05 AM LOCKSTITCH TUNNEL ELASTIC OPERATOR Gender Identity Not on file Sexual Orientation Not on file documented as of this encounter Plan of Treatment Not on file documented as of this encounter Visit Diagnoses Not on filedocumented in this encounter Care Teams Supervisory Lifeguard Relationship Specialty Start Date End Date Hossein De Guzman MD [address] [place] [address] PCP - General Family Practice 07/29/17 documented as of this encounter
--- OUTSIDE RECORDS SUMMARY | 2024-11-09 09:15 | XMS_ITS | Encounter Summary ---
Author Organization [facility] Address [address] [place] [address] Care Team Providers Care Quality Process Auditor Name Role Phone Hossein De Guzman MD Primary Care Provider [phone] Encounter Details Date Type Department Care Team (Late st Contact Info) Description 02/21/2003 Outpatient Historical [facility]'s [facility] Medical [place] [address] [place] [address] Torie Puckett MD [address] [address] Social History Tobacco Use Types Packs/Day Years Used Date Smoking Tobacco: Never Assessed Comments Unknown Sex and Gender Information Value Date Recorded Sex Assigned at Not on file Legal Sex Female 3:05 AM UPPER INSPECTOR Gender Identity Not on file Sexual Orientation Not on file documented as of this encounter Plan of Treatment Not on file documented as of this encounter Visit Diagnoses Not on filedocumented in this encounter Care Teams Quality Process Auditor Relationship Specialty Start Date End Date Hossein De Guzman MD [address] [place] [phone] PCP - General Family Practice 07/29/17 documented as of this encounter
--- OUTSIDE RECORDS SUMMARY | 2024-11-09 09:15 | XMS_ITS | Encounter Summary ---
Author Organization [facility] Address [address] [place] [address] Care Team Providers Care Pastry Sous Chef Name Role Phone Hossein De Guzman MD Primary Care Provider [phone] Encounter Details Date Type Department Care Team (Late st Contact Info) Description 11/21/2006 Outpatient Historical [facility] [address] [place] [address] Joshua Cantu MD [address] [facility] [address] [place] [address] Social History Tobacco Use Types Packs/Day Years Used Date Smoking Tobacco: Never Assessed Comments Unknown Sex and Gender Information Value Date Recorded Sex Assigned at Not on file Legal Sex Female 3:05 AM OPERATIONS ANALYST Gender Identity Not on file Sexual Orientation Not on file documented as of this encounter Plan of Treatment Not on file documented as of this encounter Visit Diagnoses Not on filedocumented in this encounter Care Teams Pastry Sous Chef Relationship Specialty Start Date End Date Hossein De Guzman MD [address] [place] [address] PCP - General Family Practice 07/29/17 documented as of this encounter
--- OUTSIDE RECORDS SUMMARY | 2024-11-09 09:15 | XMS_ITS | Encounter Summary ---
Author Organization [facility] Address [address] [place] [address] Care Team Providers Care Systems Program Manager Name Role Phone Hossein De Guzman MD Primary Care Provider [phone] Encounter Details Date Type Department Care Team (Latest Contact Info) Description 09/20/2000 Inpatient Historical [facility] Torie Puckett MD NO ADDRESS ON FILE Other specified disorder of peritoneum (Primary Dx) Social History Tobacco Use Types Packs/Day Years Used Date Smoking Tobacco: Never Assessed Comments Unknown Sex and Gender Information Value Date Recorded Sex Assigned at Not on file Legal Sex Female 3:05 AM LABORATORY EQUIPMENT INSTALLER Gender Identity Not on file Sexual Orientation Not on file documented as of this encounter Plan of Treatment Not on file documented as of this encounter Visit Diagnoses Diagnosis Other specified disorder of peritoneum- Primary documented in this encounter Care Teams Systems Program Manager Relationship Specialty Start Date End Date Hossein De Guzman MD [address] [place] [phone] PCP - General Family Practice 07/29/17 documented as of this encounter
--- OUTSIDE RECORDS SUMMARY | 2024-11-09 09:15 | XMS_ITS | Encounter Summary ---
Author Organization [facility] Address [address] [place] [address] Care Team Providers Care Supervisor Fruit Grading Name Role Phone Hossein De Guzman MD Primary Care Provider [phone] Encounter Details Date Type Department Care Team (Late st Contact Info) Description 03/25/2004 Outpatient Historical [facility] Medical [place] [address] [place] [address] Torie Puckett MD [address] [address] Social History Tobacco Use Types Packs/Day Years Used Date Smoking Tobacco: Never Assessed Comments Unknown Sex and Gender Information Value Date Recorded Sex Assigned at Not on file Legal Sex Female 3:05 AM DISBURSING OFFICER Gender Identity Not on file Sexual Orientation Not on file documented as of this encounter Plan of Treatment Not on file documented as of this encounter Visit Diagnoses Not on filedocumented in this encounter Care Teams Supervisor Fruit Grading Relationship Specialty Start Date End Date Hossein De Guzman MD [address] [place] [phone] PCP - General Family Practice 07/29/17 documented as of this encounter
--- OUTSIDE RECORDS SUMMARY | 2024-11-09 09:15 | XMS_ITS | Encounter Summary ---
Author Organization [facility] Address [address] [place] [address] Care Team Providers Care Test Puller Name Role Phone Hossein De Guzman MD Primary Care Provider [phone] Encounter Details Date Type Department Care Team (Latest Contact Info) Description 11/17/2006 Outpatient Historical [facility] Torie Puckett MD NO ADDRESS ON FILE Elderly Multigravida with Antepartum Condition or Complication (Primary Dx) Social History Tobacco Use Types Packs/Day Years Used Date Smoking Tobacco: Never Assessed Comments Unknown Sex and Gender Information Value Date Recorded Sex Assigned at Not on file Legal Sex Female 3:05 AM LOADING INSPECTOR Gender Identity Not on file Sexual Orientation Not on file documented as of this encounter Plan of Treatment Not on file documented as of this encounter Visit Diagnoses Diagnosis Elderly multigravida with antepartum condition or complication- Primary documented in this encounter Care Teams Test Puller Relationship Specialty Start Date End Date Hossein De Guzman MD [address] [place] [phone] PCP - General Family Practice 07/29/17 documented as of this encounter
--- OUTSIDE RECORDS SUMMARY | 2024-11-09 09:15 | XMS_ITS | Encounter Summary ---
Author Organization [facility] Address [address] [place] [address] Care Team Providers Care Military Source Operations Specialist Name Role Phone Hossein De Guzman MD Primary Care Provider [phone] Encounter Details Date Type Department Care Team (Late st Contact Info) Description 08/18/2000 Outpatient Historical [facility]'s [facility] Medical [place] [address] [place] [address] Torie Puckett MD [address] [address] Social History Tobacco Use Types Packs/Day Years Used Date Smoking Tobacco: Never Assessed Comments Unknown Sex and Gender Information Value Date Recorded Sex Assigned at Not on file Legal Sex Female 3:05 AM MATERIALS SCIENTIST Gender Identity Not on file Sexual Orientation Not on file documented as of this encounter Plan of Treatment Not on file documented as of this encounter Visit Diagnoses Not on filedocumented in this encounter Care Teams Military Source Operations Specialist Relationship Specialty Start Date End Date Hossein De Guzman MD [address] [place] [phone] PCP - General Family Practice 07/29/17 documented as of this encounter
--- OUTSIDE RECORDS SUMMARY | 2024-11-09 09:15 | XMS_ITS | Encounter Summary ---
Author Organization [facility] Address [address] [place] [address] Care Team Providers Care Multi Spindle Operator Name Role Phone Hossein De Guzman MD Primary Care Provider [phone] Encounter Details Date Type Department Care Team (Late st Contact Info) Description 02/09/2002 Outpatient Historical [facility]'s [facility] Medical [place] [address] [place] [address] Torie Puckett MD [address] [address] Social History Tobacco Use Types Packs/Day Years Used Date Smoking Tobacco: Never Assessed Comments Unknown Sex and Gender Information Value Date Recorded Sex Assigned at Not on file Legal Sex Female 3:05 AM CONVOLUTE TUBE WINDER Gender Identity Not on file Sexual Orientation Not on file documented as of this encounter Plan of Treatment Not on file documented as of this encounter Visit Diagnoses Not on filedocumented in this encounter Care Teams Multi Spindle Operator Relationship Specialty Start Date End Date Hossein De Guzman MD [address] [place] [phone] PCP - General Family Practice 07/29/17 documented as of this encounter
--- OUTSIDE RECORDS SUMMARY | 2024-11-09 09:15 | XMS_ITS | Encounter Summary ---
Author Organization [facility] Address [address] [place] [address] Care Team Providers Care Front Desk Monitor Name Role Phone Hossein De Guzman MD Primary Care Provider [phone] Encounter Details Date Type Department Care Team (Late st Contact Info) Description 01/20/2007 Outpatient [facility] Torie Puckett MD NO ADDRESS ON FILE Social History Tobacco Use Types Packs/Day Years Used Date Smoking Tobacco: Never Assessed Comments Unknown Sex and Gender Information Value Date Recorded Sex Assigned at Not on file Legal Sex Female 3:05 AM BICYCLE MESSENGER Gender Identity Not on file Sexual Orientation Not on file documented as of this encounter Plan of Treatment Not on file documented as of this encounter Visit Diagnoses Not on filedocumented in this encounter Care Teams Front Desk Monitor Relationship Specialty Start Date End Date Hossein De Guzman MD [address] [place] [phone] PCP - General Family Practice 07/29/17 documented as of this encounter
--- OUTSIDE RECORDS SUMMARY | 2024-11-09 09:15 | XMS_ITS | Encounter Summary ---
Author Organization [facility] Address [address] [place] [address] Care Team Providers Care Ancillary Services Manager Name Role Phone Hossein De Guzman MD Primary Care Provider [phone] Encounter Details Date Type Department Care Team (Late st Contact Info) Description 07/26/2003 Outpatient Historical [facility] Medical [place] [address] [place] [address] Torie Puckett MD [address] [address] Social History Tobacco Use Types Packs/Day Years Used Date Smoking Tobacco: Never Assessed Comments Unknown Sex and Gender Information Value Date Recorded Sex Assigned at Not on file Legal Sex Female 3:05 AM CARDIAC SPECIALIST Gender Identity Not on file Sexual Orientation Not on file documented as of this encounter Plan of Treatment Not on file documented as of this encounter Visit Diagnoses Not on filedocumented in this encounter Care Teams Ancillary Services Manager Relationship Specialty Start Date End Date Hossein De Guzman MD [address] [place] [phone] PCP - General Family Practice 07/29/17 documented as of this encounter
--- OUTSIDE RECORDS SUMMARY | 2024-11-09 09:15 | XMS_ITS | Encounter Summary ---
Author Organization [facility] Address [address] [place] [address] Care Team Providers Care Office System Analyst Name Role Phone Hossein De Guzman MD Primary Care Provider [phone] Encounter Details Date Type Department Care Team (Late st Contact Info) Description 02/21/2001 Outpatient Historical [facility] Medical [place] [address] [place] [address] Torie Puckett MD [address] [address] Social History Tobacco Use Types Packs/Day Years Used Date Smoking Tobacco: Never Assessed Comments Unknown Sex and Gender Information Value Date Recorded Sex Assigned at Not on file 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
--- OUTSIDE RECORDS SUMMARY | 2024-11-09 09:15 | XMS_ITS | Encounter Summary ---
Author Organization [facility] Address [address] [place] [address] Care Team Providers Care Slab Lifting Supervisor Name Role Phone Hossein De Guzman MD Primary Care Provider [phone] Encounter Details Date Type Department Care Team (Late st Contact Info) Description 12/27/2003 Outpatient Historical [facility] Medical [place] [address] [place] [address] Torie Puckett MD [address] [address] Social History Tobacco Use Types Packs/Day Years Used Date Smoking Tobacco: Never Assessed Comments Unknown Sex and Gender Information Value Date Recorded Sex Assigned at Not on file Legal Sex Female 3:05 AM TICKET MAKER Gender Identity Not on file Sexual Orientation Not on file documented as of this encounter Plan of Treatment Not on file documented as of this encounter Visit Diagnoses Not on filedocumented in this encounter Care Teams Slab Lifting Supervisor Relationship Specialty Start Date End Date Hossein De Guzman MD [address] [place] [phone] PCP - General Family Practice 07/29/17 documented as of this encounter
--- OUTSIDE RECORDS SUMMARY | 2024-11-09 09:15 | XMS_ITS | Encounter Summary ---
Author Organization [facility] Address [address] [place] [address] Care Team Providers Care Lead Sustainability Specialist Name Role Phone Hossein De Guzman MD Primary Care Provider [phone] Encounter Details Date Type Department Care Team (Late st Contact Info) Description 10/27/2006 Outpatient Historical [facility] Medical [place] [address] [place] [address] Torie Puckett MD [address] [address] Social History Tobacco Use Types Packs/Day Years Used Date Smoking Tobacco: Never Assessed Comments Unknown Sex and Gender Information Value Date Recorded Sex Assigned at Not on file Legal Sex Female 3:05 AM STAFF APPRAISER Gender Identity Not on file Sexual Orientation Not on file documented as of this encounter Plan of Treatment Not on file documented as of this encounter Visit Diagnoses Not on filedocumented in this encounter Care Teams Lead Sustainability Specialist Relationship Specialty Start Date End Date Hossein De Guzman MD [address] [place] [phone] PCP - General Family Practice 07/29/17 documented as of this encounter
--- OUTSIDE RECORDS SUMMARY | 2024-11-09 09:15 | XMS_ITS | Encounter Summary ---
Author Organization [facility] Address [address] [place] [address] Care Team Providers Care Guest Room Attendant Name Role Phone Hossein De Guzman MD Primary Care Provider [phone] Encounter Details Date Type Department Care Team (Late st Contact Info) Description 01/24/2004 Outpatient Historical [facility]'s [facility] Medical [place] [address] [place] [address] Torie Puckett MD [address] [address] Social History Tobacco Use Types Packs/Day Years Used Date Smoking Tobacco: Never Assessed Comments Unknown Sex and Gender Information Value Date Recorded Sex Assigned at Not on file Legal Sex Female 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
--- OUTSIDE RECORDS SUMMARY | 2024-11-09 09:15 | XMS_ITS | Encounter Summary ---
Author Organization [facility] Address [address] [place] [address] Care Team Providers Care Yarn Washer Name Role Phone Hossein De Guzman MD Primary Care Provider [phone] Encounter Details Date Type Department Care Team (Late st Contact Info) Description 11/29/2003 Outpatient Historical [facility] Medical [place] [address] [place] [address] Torie Puckett MD [address] [address] Social History Tobacco Use Types Packs/Day Years Used Date Smoking Tobacco: Never Assessed Comments Unknown Sex and Gender Information Value Date Recorded Sex Assigned at Not on file Legal Sex Female 3:05 AM SEMICONDUCTOR PACKAGES LEAK TESTER Gender Identity Not on file Sexual Orientation Not on file documented as of this encounter Plan of Treatment Not on file documented as of this encounter Visit Diagnoses Not on filedocumented in this encounter Care Teams Yarn Washer Relationship Specialty Start Date End Date Hossein De Guzman MD [address] [place] [place] [phone] PCP - General Family Practice 07/29/17 documented as of this encounter
--- OUTSIDE RECORDS SUMMARY | 2024-11-09 09:15 | XMS_ITS | Encounter Summary ---
Author Organization [facility] Address [address] [place] [address] Care Team Providers Care Offset Printing Operator Name Role Phone Hossein De Guzman MD Primary Care Provider [phone] Encounter Details Date Type Department Care Team (Late st Contact Info) Description 02/06/2004 Outpatient Historical [facility] Medical [place] [address] [place] [address] Torie Puckett MD [address] [address] Social History Tobacco Use Types Packs/Day Years Used Date Smoking Tobacco: Never Assessed Comments Unknown Sex and Gender Information Value Date Recorded Sex Assigned at Not on file Legal Sex Female 3:05 AM FUNDRAISING COORDINATOR Gender Identity Not on file Sexual Orientation Not on file documented as of this encounter Plan of Treatment Not on file documented as of this encounter Visit Diagnoses Not on filedocumented in this encounter Care Teams Offset Printing Operator Relationship Specialty Start Date End Date Hossein De Guzman MD [address] [place] [phone] PCP - General Family Practice 07/29/17 documented as of this encounter
--- OUTSIDE RECORDS SUMMARY | 2024-11-09 09:15 | XMS_ITS | Clinical Summary ---
Author Organization [facility] Address [address] [place] [address] Phone Care Team Providers Care Kitchen Worker Name Role Phone Hossein De Guzman MD Primary Care Provider [phone] Allergies No known active allergies Medications FLUTICASONE PROPIONATE (FLONASE BOTH NOSTRIL) Administer in each nostril. Active CETIRIZINE HCL (ZYRTEC ORAL) Take by mouth. A ctive ALPRAZolam (XANAX) 0.5 mg tablet 6 Active VITAMIN E ORAL Take by mouth. Active fluconazole (DIFLUCAN) 150 mg tablet Take 1 Tablet (150mg) by mouth once. If symptoms persist after 5 days take 2nd tablet (150mg). 2 Tablet 1 0 Active fluconazole (DIFLUCAN) 150 mg tablet Take one tablet by mouth today and one tablet by mouth in 3 days. 2 Tablet 1 Active Active Problems Problem Noted Date Diagnosed Date Fibroid 08/05/2014 Resolved Problems Problem Noted Date Diagnosed Date Resolved Date IUD (intrauterine device) in place 04/26/2014 04/19/2016 Overview (04/26/2014): S/P ParaGard 11/2012 Vaginal itching 09/25/2008 03/26/2016 Family History Medical History Relation Name Comments Hypertension Brother Liver Disease Father alcoholic cirr hosis Heart Attack Maternal Grandfather Heart Disease Maternal Grandfather Other Maternal Grandmother brain t umor High Cholesterol Mother Lung Cancer Mother Cancer Paternal Grandfather non hod gkins lymphoma Alzheimer's Disease Paternal Grandmother Relation Name Status Comments Brother Alive Father Maternal Grandfather Maternal Grandmother Mother Alive Paternal Grandfather Paternal Grandmother Social History Tobacco Use Types Packs/Day Years Used Date Smoking Tobacco: Never Smokeless Tobacco: Never Alcohol Use Standard Drinks/Week Comments Yes 2 (1 standard drink = 0.6 oz pur e alcohol) rare occasion Comments No Sex and Gender Information Value Date Recorded Sex Assigned at Not on file Legal Sex Female 3:05 AM ACCOUNTING POLICY CONSULTANT Gender Identity Not on file Sexual Orientation Not on file Last Filed Vital Signs Vital Sign Reading Time Taken Comments Blood Pressure 117/77 02/21/2020 3:44 PM CDT Pulse 71 05/25/2019 9:11 AM CDT Temperature - - Respiratory Rate - - Oxygen Saturation - - Inhaled Oxygen Concentration - - Weight 68.1 kg (150 lb 3.2 oz) 02/21/2020 3:44 P M CDT Height 169.5 cm (5' 6.75 ) 02/21/2020 3:44 PM CD T Body Mass Index 23.7 02/21/2020 3:44 PM CDT Plan of Treatment Health Maintenance Due Date Last Done Comments DTAP/TDAP/TD VACCINES (1 - Tdap) 1988 HEPATITIS B VACCINES (1 of 3 - 19+ 3-dose series) 1988 COLORECTAL SCREENING 2014 Colorectal Cancer Screening 2014 FIT-DNA Q 3 years 2014 FIT/FOBT Q 1 year 2014 Flex Sig/CT Colonography Q 5 years 2014 ZOSTER VACCINE (1 of 2) 11/14/2019 BREAST CANCER SCREENING 09/18/2021 09/18/19 21, 09/07/2018, 06/16/2017, Additional history exists PAP SMEAR 05/25/2022 05/25/2019, 04/16, 04/14/2017, Additional history exists PAP SMEAR 05/25/2022 05/25/2019, 04/16, 04/14/2017, Additional history exists CERVICAL CANCER SCREENING 05/12/2023 HPV/Cotest (30-65) 05/12/2023 05/12/2018, 0 04/14/2017, 04/08/2016, Additional history exists INFLUENZA VACCINE (#1) 2024 PNEUMOCOCCAL VACCINE 0-49 YEARS Aged Out No longer eligible based on patient's age to complete this topic Procedures Procedure Name Priority Date/Time Associated Diagnosis Comments MAMMO 3D WALLY SCREEN BILAT W OR WO CAD Routine 09/18/2020 Well woman exam with routine gynecological exam Screening for breast cancer CERV/VAG CYTO AGE BASED SCREEN PAP Routine 05/25/2019 9:49 AM CDT Well woman exam with routine gynecological exam Screening for malignant neoplasm of cervix Special screening examination for human papillomavirus (HPV) CERV/VAG CYTO SCREEN PAP RLFX HPV Routine 05/12/2018 11:16 AM CDT Well woman exam with routine gynecological exam Screening for malignant neoplasm of cervix Special screening examination for human papillomavirus (HPV) from Last 3 Months or Most Recently Relevant to Health Maintenance Results * MAMMO SCRN BILAT 3D WALLY W OR WO CAD (09/18/2020) Anatomical Region Laterality Modality Breast Bilateral Mammography Jada Portillo HOUSEKEEPING ASSISTANT MAMMO ORDERABLES Final Res ult * CERV/VAG CYTO AGE BASED SCREEN PAP (05/25/2019 9:49 AM CDT) COMMENT (PAP): SEE COMMENT 8:32 AM CDT [facility] Comment: This order for age-based cervical cancer and STI screening follows ACOG guidelines(PB 168, 140, UAG082). See individual assays for performing site location. CLINICAL INFORMATION HEALTHY 05/30/2019 8:32 AM CDT [facility] LAST MENSTRUAL PERIOD Information not provided 05/30/2019 8:32 AM CDT [facility] PREV PAP: 05/12/18 NIL NEG HPV HX 05/30/2019 8:32 AM CDT [facility] PREV BX: Information not provided 05/30/2019 8:32 AM CDT [facility] SOURCE Endocervix 05/30/2019 8:32 AM CDT [facility] ADEQUACY: SEE COMMENT 05/30/2019 8:32 AM CDT [facility] Comment: Satisfactory for evaluation. Endocervical/transformation zone component absent. Age and/or menstrual status not provided PAP INTERP Negative for intraepithelial lesion or malignancy. 05/30/2019 8:32 AM CDT [facility] CYTOLOGY INFECTION Fungal organisms morphologically consistent with Sonja spp. 05/30/2019 8:32 AM CDT [facility] COMMENT This Pap test has been evaluated with computer assisted technology. 05/30/2019 8:32 AM CDT [facility] SENIOR SALES ASSOCIATE: SEE COMMENT 2018 8:32 AM CDT [facility] Comment: LMT, CT(ASCP) CT screening location: [place] [address] [address] [address] EXPLANATORY NOTE SEE COMMENT 019 8:32 AM CDT [facility] Comment: EXPLANATORY NOTE: The Pap is a screening test for cervical cancer. It is not a diagnostic test and is subject to false negative and false positive results. It is most reliable when a satisfactory sample, regularly obtained, is submitted with relevant clinical findings and history, and when the Pap result is evaluated along with historic and current clinical information. HPV E6/E7 Not Detected Not Detected 05/30/2019 8:32 AM CDT [facility] Comment: This test was performed using the APTIMA HPV Assay ([employer] This assay detects E6/E7 viral messenger RNA (mRNA) from 14 high-risk HPV types (16,18,31,33,35,39,45,51,52,56,58,59,66,68). The analytical performance characteristics of this assay have been determined by [employer]. The modifications have not been cleared or approved by the FDA. This assay has been validated pursuant to the CLIA regulations and is used for clinical purposes. Genital SWAB OF ENDOCERVIX / Unknown Collection / Unknown 05/25/2019 9:49 AM CDT 05/25/2019 12:28 PM CDT Narrative [facility] - 05/30/2019 8:32 AM CDT Performing Organization Information: Site ID: [id number] [facility] Address: [address] [address] Director: Bertin Lamas D.O., MPH Site ID: [place] [facility] Address: [address] [address] [address] Director: Ag Huynh Jada Portillo NP PATHOLOGY/CYTOLOGY ORDERAB LES Final Result [facility] [phone] * CERV/VAG CYTO SCREEN PAP RLFX HPV (05/12/2018 11:16 AM CDT) CLINICAL INFORMATION SEE COMMENT 05/16/2018 8:11 PM CDT [facility] Comment:Information not prov ided LAST MENSTRUAL PERIOD SEE COMMENT 05/16/2018 8:11 PM CDT [facility] Comment:Information not prov ided PREV PAP: SEE COMMENT 05/16/2018 8:11 PM CDT [facility] Comment:Information not prov ided PREV BX: SEE COMMENT 05/16/2018 8:11 PM CDT [facility] Comment:Information not prov ided SOURCE Endocervix 05/16/2018 8:11 PM CDT [facility] ADEQUACY: SEE COMMENT 05/16/2018 8:11 PM CDT [facility] Comment: Satisfactory for evaluation. Endocervical/transformation zone component present. Age and/or menstrual status not provided PAP INTERP SEE COMMENT 05/16/2018 8:11 PM CDT [facility] Comment:Negative for intraep ithelial lesion or malignancy. CYTOLOGY INFECTION SEE COMMENT 05/16 8:11 PM CDT [facility] Comment: Fungal organisms morphologically consistent with Sonja spp. COMMENT SEE COMMENT 05/16/2018 8:11 PM CDT [facility] Comment: This Pap test has been evaluated with computer assisted technology. SENIOR SALES ASSOCIATE: SEE COMMENT 2017 8:11 PM CDT [facility] Comment: ABC, CT(ASCP) CT screening location: [place] [address] [place] [address] EXPLANATORY NOTE SEE COMMENT 018 8:11 PM CDT [facility] Comment: EXPLANATORY NOTE: The Pap is a screening test for cervical cancer. It is not a diagnostic test and is subject to false negative and false positive results. It is most reliable when a satisfactory sample, regularly obtained, is submitted with relevant clinical findings and history, and when the Pap result is evaluated along with historic and current clinical information. Genital SWAB OF ENDOCERVIX / Unknown Collection / Unknown 05/12/2018 11:16 AM CDT 05/12/2018 4:13 PM CDT Narrative [facility] - 05/16/2018 8:11 PM CDT Performing Organization Information: Site ID: [place] [facility] Address: [address] [address] [address] Director: Ag Huynh Jada Portillo HOUSEKEEPING ASSISTANT PATHOLOGY/CYTOLOGY ORDERAB LES Final Result [facility] from Last 3 Months or Most Recently Relevant to Health Maintenance Insurance [facility] [id number] Care Teams Kitchen Worker Relationship Specialty Start Date End Date Hossein De Guzman MD [address] [place] [phone] PCP - General Family Practice 07/29/17
--- OUTSIDE RECORDS SUMMARY | 2024-11-09 09:15 | XMS_ITS | Encounter Summary ---
Author Organization [facility] Address [address] [place] [address] Care Team Providers Care Driver Examiner Name Role Phone Hossein De Guzman MD Primary Care Provider [phone] Encounter Details Date Type Department Care Team (Late st Contact Info) Description 09/29/2004 Outpatient Historical [facility] [place] [facility] [address] [place] [address] Torie Puckett MD [address] [address] Social History Tobacco Use Types Packs/Day Years Used Date Smoking Tobacco: Never Assessed Comments Unknown Sex and Gender Information Value Date Recorded Sex Assigned at Not on file Legal Sex Female 3:05 AM DECK STEWARD Gender Identity Not on file Sexual Orientation Not on file documented as of this encounter Plan of Treatment Not on file documented as of this encounter Visit Diagnoses Not on filedocumented in this encounter Care Teams Driver Examiner Relationship Specialty Start Date End Date Hossein De Guzman MD [address] [place] [phone] PCP - General Family Practice 07/29/17 documented as of this encounter
--- OUTSIDE RECORDS SUMMARY | 2024-11-09 09:15 | XMS_ITS | Encounter Summary ---
Author Organization [facility] Address [address] [place] [address] Care Team Providers Care Organic Extractions Technician Name Role Phone Hossein De Guzman MD Primary Care Provider [phone] Encounter Details Date Type Department Care Team (Late st Contact Info) Description 10/06/2006 Outpatient Historical [facility]'s [facility] Medical [place] [address] [place] [address] Torie Puckett MD [address] [address] Social History Tobacco Use Types Packs/Day Years Used Date Smoking Tobacco: Never Assessed Comments Unknown Sex and Gender Information Value Date Recorded Sex Assigned at Not on file Legal Sex Female 3:05 AM ORNAMENTER HAND Gender Identity Not on file Sexual Orientation Not on file documented as of this encounter Plan of Treatment Not on file documented as of this encounter Visit Diagnoses Not on filedocumented in this encounter Care Teams Organic Extractions Technician Relationship Specialty Start Date End Date Hossein De Guzman MD [address] [place] [phone] PCP - General Family Practice 07/29/17 documented as of this encounter
--- OUTSIDE RECORDS SUMMARY | 2024-11-09 09:15 | XMS_ITS | Encounter Summary ---
Author Organization [facility] Address [address] [place] [address] Care Team Providers Care Homicide Squad Lieutenant Name Role Phone Hossein De Guzman MD Primary Care Provider [phone] Encounter Details Date Type Department Care Team (Late st Contact Info) Description 08/23/2003 Outpatient Historical [facility] Medical [place] [address] [place] [address] Torie Puckett MD [address] [address] Social History Tobacco Use Types Packs/Day Years Used Date Smoking Tobacco: Never Assessed Comments Unknown Sex and Gender Information Value Date Recorded Sex Assigned at Not on file Legal Sex Female 3:05 AM CERAMIC MAKER DEMONSTRATOR Gender Identity Not on file Sexual Orientation Not on file documented as of this encounter Plan of Treatment Not on file documented as of this encounter Visit Diagnoses Not on filedocumented in this encounter Care Teams Homicide Squad Lieutenant Relationship Specialty Start Date End Date Hossein De Guzman MD [address] [place] [phone] PCP - General Family Practice 07/29/17 documented as of this encounter
--- OUTSIDE RECORDS SUMMARY | 2024-11-09 09:15 | XMS_ITS | Encounter Summary ---
Author Organization [facility] Address [address] [place] [address] Care Team Providers Care Tapper Shank Name Role Phone Hossein De Guzman MD Primary Care Provider [phone] Encounter Details Date Type Department Care Team (Late st Contact Info) Description 03/31/2007 Outpatient Historical [facility]'s [facility] Medical [place] [address] [place] [address] Torie Puckett MD [address] [address] Social History Tobacco Use Types Packs/Day Years Used Date Smoking Tobacco: Never Assessed Comments Unknown Sex and Gender Information Value Date Recorded Sex Assigned at Not on file Legal Sex Female 3:05 AM CAREER GUIDANCE COUNSELOR Gender Identity Not on file Sexual Orientation Not on file documented as of this encounter Plan of Treatment Not on file documented as of this encounter Visit Diagnoses Not on filedocumented in this encounter Care Teams Tapper Shank Relationship Specialty Start Date End Date Hossein De Guzman MD [address] [place] [address] PCP - General Family Practice 07/29/17 documented as of this encounter
--- OUTSIDE RECORDS SUMMARY | 2024-11-09 09:15 | XMS_ITS | Encounter Summary ---
Author Organization [facility] Address [address] [place] [address] Care Team Providers Care Etcher Electrolytic Name Role Phone Hossein De Guzman MD Primary Care Provider [phone] Encounter Details Date Type Department Care Team (Late st Contact Info) Description 10/06/2006 Outpatient Historical [facility]'s [facility] Medical [place] [address] [place] [address] Torie Puckett MD [address] [address] Social History Tobacco Use Types Packs/Day Years Used Date Smoking Tobacco: Never Assessed Comments Unknown Sex and Gender Information Value Date Recorded Sex Assigned at Not on file Legal Sex Female 3:05 AM PHOTOGRAPHIC ENGINEER Gender Identity Not on file Sexual Orientation Not on file documented as of this encounter Plan of Treatment Not on file documented as of this encounter Visit Diagnoses Not on filedocumented in this encounter Care Teams Etcher Electrolytic Relationship Specialty Start Date End Date Hossein De Guzman MD [address] [place] [phone] PCP - General Family Practice 07/29/17 documented as of this encounter
--- OUTSIDE RECORDS SUMMARY | 2024-11-09 09:15 | XMS_ITS | Encounter Summary ---
Author Organization [facility] Address [address] [place] [address] Care Team Providers Care Installment Loan Collector Name Role Phone Hossein De Guzman MD Primary Care Provider [phone] Encounter Details Date Type Department Care Team (Late st Contact Info) Description 02/11/2004 Outpatient Historical [facility] Medical [place] [address] [place] [address] Torie Puckett MD [address] [address] Social History Tobacco Use Types Packs/Day Years Used Date Smoking Tobacco: Never Assessed Comments Unknown Sex and Gender Information Value Date Recorded Sex Assigned at Not on file Legal Sex Female 3:05 AM ANIMAL RIDE MANAGER Gender Identity Not on file Sexual Orientation Not on file documented as of this encounter Plan of Treatment Not on file documented as of this encounter Visit Diagnoses Not on filedocumented in this encounter Care Teams Installment Loan Collector Relationship Specialty Start Date End Date Hossein De Guzman MD [address] [place] [phone] PCP - General Family Practice 07/29/17 documented as of this encounter
--- OUTSIDE RECORDS SUMMARY | 2024-11-09 09:15 | XMS_ITS | Encounter Summary ---
Author Organization [facility] Address [address] [place] [address] Care Team Providers Care Sales Promotion Representative Name Role Phone Hossein De Guzman MD Primary Care Provider [phone] Encounter Details Date Type Department Care Team (Late st Contact Info) Description 02/21/2003 Outpatient Historical [facility] Medical [place] [address] [place] [address] Torie Puckett MD [address] [address] Social History Tobacco Use Types Packs/Day Years Used Date Smoking Tobacco: Never Assessed Comments Unknown Sex and Gender Information Value Date Recorded Sex Assigned at Not on file Legal Sex Female 3:05 AM CUSTOM SHOP WORKER Gender Identity Not on file Sexual Orientation Not on file documented as of this encounter Plan of Treatment Not on file documented as of this encounter Visit Diagnoses Not on filedocumented in this encounter Care Teams Sales Promotion Representative Relationship Specialty Start Date End Date Hossein De Guzman MD [address] [place] [address] PCP - General Family Practice 07/29/17 documented as of this encounter
--- OUTSIDE RECORDS SUMMARY | 2024-11-09 09:15 | XMS_ITS | Encounter Summary ---
Author Organization [employer] [facility] Address [address] [place] [address] Care Team Providers Care Ciaio Lumite Injector Name Role Phone Hossein De Guzman MD Primary Care Provider [phone] Encounter Details Date Type Department Care Team (Late st Contact Info) Description 09/20/2000 Outpatient Historical [facility] Care [facility] 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
--- OUTSIDE RECORDS SUMMARY | 2024-11-09 09:15 | XMS_ITS | Encounter Summary ---
Author Organization [facility] Address [address] [place] [address] Care Team Providers Care Budget Controller Name Role Phone Hossein De Guzman MD Primary Care Provider [phone] Encounter Details Date Type Department Care Team (Late st Contact Info) Description 10/26/2000 Outpatient Historical [facility] [address] [place] [address] Torie Puckett MD [address] [address] Social History Tobacco Use Types Packs/Day Years Used Date Smoking Tobacco: Never Assessed Comments Unknown Sex and Gender Information Value Date Recorded Sex Assigned at Not on file Legal Sex Female 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
--- OUTSIDE RECORDS SUMMARY | 2024-11-09 09:15 | XMS_ITS | Encounter Summary ---
Author Organization [facility] Address [address] [place] [address] Care Team Providers Care Neurobiologist Name Role Phone Hossein De Guzman MD Primary Care Provider [phone] Encounter Details Date Type Department Care Team (Late st Contact Info) Description 10/03/2003 Outpatient Historical [facility]'s [facility] Medical [place] [address] [place] [address] Torie Puckett MD [address] [address] Social History Tobacco Use Types Packs/Day Years Used Date Smoking Tobacco: Never Assessed Comments Unknown Sex and Gender Information Value Date Recorded Sex Assigned at Not on file Legal Sex Female 3:05 AM SENIOR CLINICAL STUDY MANAGER Gender Identity Not on file Sexual Orientation Not on file documented as of this encounter Plan of Treatment Not on file documented as of this encounter Visit Diagnoses Not on filedocumented in this encounter Care Teams Neurobiologist Relationship Specialty Start Date End Date Hossein De Guzman MD [address] [place] [address] PCP - General Family Practice 07/29/17 documented as of this encounter
--- OUTSIDE RECORDS SUMMARY | 2024-11-09 09:15 | XMS_ITS | Encounter Summary ---
Author Organization [facility] Address [address] [place] [address] Care Team Providers Care Melter Helper Name Role Phone Hossein De Guzman MD Primary Care Provider [phone] Encounter Details Date Type Department Care Team (Late st Contact Info) Description 01/02/2007 Outpatient Historical [facility] Maternal and Ground [address] [place] [address] Joshua Cantu MD [address] [facility] [address] [place] [address] Social History Tobacco Use Types Packs/Day Years Used Date Smoking Tobacco: Never Assessed Comments Unknown Sex and Gender Information Value Date Recorded Sex Assigned at Not on file Legal Sex Female 3:05 AM INSPECTOR ALIGNING Gender Identity Not on file Sexual Orientation Not on file documented as of this encounter Plan of Treatment Not on file documented as of this encounter Visit Diagnoses Not on filedocumented in this encounter Care Teams Melter Helper Relationship Specialty Start Date End Date Hossein De Guzman MD [address] [place] [phone] PCP - General Family Practice 07/29/17 documented as of this encounter
--- OUTSIDE RECORDS SUMMARY | 2024-11-09 09:15 | XMS_ITS | Encounter Summary ---
Author Organization [facility] Address [address] [place] [address] Care Team Providers Care Financial Engineer Name Role Phone Hossein De Guzman MD Primary Care Provider [phone] Encounter Details Date Type Department Care Team (Latest Contact Info) Description 12/19/2006 Outpatient Historical [facility] Torie Puckett MD NO ADDRESS ON FILE Elderly Multigravida with Antepartum Condition or Complication (Primary Dx) Social History Tobacco Use Types Packs/Day Years Used Date Smoking Tobacco: Never Assessed Comments Unknown Sex and Gender Information Value Date Recorded Sex Assigned at Not on file Legal Sex Female 3:05 AM CLIENT EVALUATOR Gender Identity Not on file Sexual Orientation Not on file documented as of this encounter Plan of Treatment Not on file documented as of this encounter Visit Diagnoses Diagnosis Elderly multigravida with antepartum condition or complication- Primary documented in this encounter Care Teams Financial Engineer Relationship Specialty Start Date End Date Hossein De Guzman MD [address] [place] [place] [address] PCP - General Family Practice 07/29/17 documented as of this encounter
--- OUTSIDE RECORDS SUMMARY | 2024-11-09 09:15 | XMS_ITS | Encounter Summary ---
Author Organization [facility] Address [address] [place] [address] Care Team Providers Care Freight Trucker Name Role Phone Hossein De Guzman MD Primary Care Provider [phone] Encounter Details Date Type Department Care Team (Late st Contact Info) Description 02/08/2007 Outpatient Historical [facility] Medical [place] [address] [place] [address] Torie Puckett MD [address] [address] Social History Tobacco Use Types Packs/Day Years Used Date Smoking Tobacco: Never Assessed Comments Unknown Sex and Gender Information Value Date Recorded Sex Assigned at Not on file Legal Sex 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
--- OUTSIDE RECORDS SUMMARY | 2024-11-09 09:15 | XMS_ITS | Encounter Summary ---
Author Organization [facility] Address [address] [place] [address] Care Team Providers Care Clinic Md Associate Name Role Phone Hossein De Guzman MD Primary Care Provider [phone] Encounter Details Date Type Department Care Team (Late st Contact Info) Description 09/09/2005 Outpatient Historical [facility] Medical [place] [address] [place] [address] Torie Puckett MD [address] [address] Social History Tobacco Use Types Packs/Day Years Used Date Smoking Tobacco: Never Assessed Comments Unknown Sex and Gender Information Value Date Recorded Sex Assigned at Not on file Legal Sex Female 3:05 AM BUSINESS SERVICES INTERN Gender Identity Not on file Sexual Orientation Not on file documented as of this encounter Plan of Treatment Not on file documented as of this encounter Visit Diagnoses Not on filedocumented in this encounter Care Teams Clinic Md Associate Relationship Specialty Start Date End Date Hossein De Guzman MD [address] [place] [phone] PCP - General Family Practice 07/29/17 documented as of this encounter
--- OUTSIDE RECORDS SUMMARY | 2024-11-09 09:15 | XMS_ITS | Encounter Summary ---
Author Organization [facility] Address [address] [place] [address] Care Team Providers Care Laborer Starch Factory Name Role Phone Hossein De Guzman MD Primary Care Provider [phone] Encounter Details Date Type Department Care Team (Late st Contact Info) Description 01/10/2004 Outpatient Historical [facility] Medical [place] [address] [place] [address] Torie Puckett MD [address] [address] Social History Tobacco Use Types Packs/Day Years Used Date Smoking Tobacco: Never Assessed Comments Unknown Sex and Gender Information Value Date Recorded Sex Assigned at Not on file Legal Sex Female 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
--- OUTSIDE RECORDS SUMMARY | 2024-11-09 09:15 | XMS_ITS | Encounter Summary ---
Author Organization [facility] Address [address] [place] [address] Care Team Providers Care Dish Network Installer Name Role Phone Hossein De Guzman MD Primary Care Provider [phone] Encounter Details Date Type Department Care Team (Late st Contact Info) Description 03/25/2005 Outpatient Historical [facility] [address] [place] [address] Torie Puckett MD [address] [address] Social History Tobacco Use Types Packs/Day Years Used Date Smoking Tobacco: Never Assessed Comments Unknown Sex and Gender Information Value Date Recorded Sex Assigned at Not on file Legal Sex Female 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
--- OUTSIDE RECORDS SUMMARY | 2024-11-09 09:15 | XMS_ITS | Encounter Summary ---
Author Organization [facility] Address [address] [place] [address] Care Team Providers Care Bus Company Manager Name Role Phone Hossein De Guzman MD Primary Care Provider [phone] Encounter Details Date Type Department Care Team (Late st Contact Info) Description 09/20/2003 Outpatient Historical [facility] Medical [place] [address] [place] [address] Torie Puckett MD [address] [address] Social History Tobacco Use Types Packs/Day Years Used Date Smoking Tobacco: Never Assessed Comments Unknown Sex and Gender Information Value Date Recorded Sex Assigned at Not on file Legal Sex Female 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
--- OUTSIDE RECORDS SUMMARY | 2024-11-09 09:15 | XMS_ITS | Encounter Summary ---
Author Organization [facility] Address [address] [place] [address] Care Team Providers Care Booking Agent Name Role Phone Hossein De Guzman MD Primary Care Provider [phone] Encounter Details Date Type Department Care Team (Late st Contact Info) Description 02/17/2007 Outpatient Historical [facility] Medical [place] [address] [place] [address] Torie Puckett MD [address] [address] Social History Tobacco Use Types Packs/Day Years Used Date Smoking Tobacco: Never Assessed Comments Unknown Sex and Gender Information Value Date Recorded Sex Assigned at Not on file Legal Sex Female 3:05 AM UNDERCOAT SPRAYER Gender Identity Not on file Sexual Orientation Not on file documented as of this encounter Plan of Treatment Not on file documented as of this encounter Visit Diagnoses Not on filedocumented in this encounter Care Teams Booking Agent Relationship Specialty Start Date End Date Hossein De Guzman MD [address] [place] [address] PCP - General Family Practice 07/29/17 documented as of this encounter
--- OUTSIDE RECORDS SUMMARY | 2024-11-09 09:16 | XMS_ITS | Encounter Summary ---
Author Organization [facility] Address [address] [place] [address] Care Team Providers Care Cesspool Cleaner Name Role Phone Hossein De Guzman MD Primary Care Provider [phone] Encounter Details Date Type Department Care Team (Late st Contact Info) Description 04/25/2007 Outpatient Historical [facility] Medical [place] [address] [place] [address] Torie Puckett MD [address] [address] Social History Tobacco Use Types Packs/Day Years Used Date Smoking Tobacco: Never Assessed Comments Unknown Sex and Gender Information Value Date Recorded Sex Assigned at Not on file Legal Sex Female 3:05 AM INTERPRETER FOR THE DEAF Gender Identity Not on file Sexual Orientation Not on file documented as of this encounter Plan of Treatment Not on file documented as of this encounter Visit Diagnoses Not on filedocumented in this encounter Care Teams Cesspool Cleaner Relationship Specialty Start Date End Date Hossein De Guzman MD [address] [place] [address] PCP - General Family Practice 07/29/17 documented as of this encounter
--- OUTSIDE RECORDS SUMMARY | 2024-11-09 09:16 | XMS_ITS | Clinical Summary ---
Author Organization [facility] [address] Address [address] [place] [address] Care Team Providers Care Culinary Instructor Name Role Phone Ismael Donald MD Primary Care Provider [phone] Allergies Active Allergy Reactions Criticality Noted Date Comments Metronidazole Itching,Swelling Medium 05/02/2024 Medications vitamin E 400 unit capsule take 1 by Oral route once 0 0 7 Active loratadine (CLARITIN) 10 mg tablet take 1 tablet by oral route every day 0 0 7 Active ALPRAZolam (XANAX) 0.25 mg tablet TK 1 PO QD PRN 5 9 Active fluticasone propionate (FLONASE) 50 mcg/actuation nasal spray Administer 1 spray into each nostril daily Active estradioL (CLIMARA) 0.05 mg/24 hrIndications:V asomotor symptoms due to menopause Place 1 patch on the skin once a week 24 patch 3 4 05/02/20 25 Active progesterone (PROMETRIUM) 100 mg capsuleIndicati ons:Vasomotor symptoms due to menopause Take 1 capsule (100 mg total) by mouth daily 90 capsule 3 4 05/02/20 25 Active Active Problems Problem Noted Date Diagnosed Date Acute vaginitis 06/21/2024 Assessment & Plan (06/21/2024 1:28 PM CRUSHER DRY GROUND MICA): Swabs for BV, yeast, GC, CT, trich sent pH in clinic 6-7 consistent with BV Sent in script for Clindamycin vaginal cream x 7 days Discussed treatment for recurrent BV if were to continue getting infections; not candidate for prolonged metrogel courses but boric acid could be an option. Also discussed trial of OTC vaginal microbiome capsules. Vasomotor symptoms due to menopause 09/02/2023 Assessment & Plan (05/02/2024 4:57 PM CDT): We discussed some of the typical symptoms and risks associated with menopause. We discussed that estrogen therapy is the most effective treatment for vasomotor symptoms (hot flashes and night sweats). Non-hormonal therapies are an option for patients who have contraindications to HT or make a personal choice not to use HT. These therapies are not as effective as estrogen, however many may provide relief. The recommendations for hormone therapy is to use an adequate amount to relieve symptoms. She elected to proceed with HT management. Rx sent to pharmacy. She was advised to allow 8 weeks to assess symptom response. [facility] and ACOG handouts provided. Questions answered. Assessment & Plan (09/02/2023 2:08 PM CRUSHER DRY GROUND MICA): We discussed some of the typical symptoms and risks associated with menopause. We discussed that estrogen therapy is the most effective treatment for vasomotor symptoms (hot flashes and night sweats). Non-hormonal therapies are an option for patients who have contraindications to HT or make a personal choice not to use HT. These therapies are not as effective as estrogen, however many may provide relief. We also discussed the limitations/evidence to support use of HT for other typical menopause symptoms. We will proceed with expectant management at this time. She will monitor menses and flushing. Labs ordered. Discussed behavioral, diet and exercise interventions. [facility] and ACOG handouts provided. Questions answered. Pruritus of vagina 03/14/2017 Syncope and collapse 01/11/2017 Overview (01/14/2017): Syncope and collapse Fibroid 08/05/2014 Immunizations Immunization Administration Dates Next Due Influenza, Trivalent, Cell C ulture-based MDCK, Preservative Free, Antibiotic Free, Intramuscular 05/23/2024 Medical History Medical History Date Comments Hx Other Medical Mesothelial cys t Depression Depression Anxiety disorder Anxiety Family History Medical History Relation Name Comments Other Brother 2 Alive and well; Other Father 2 Liver failure; Cause of : Liver failure Other Mother 2 Alive and well; Heart disease Other Family history of Cardiovascular disease; Hyperlipidemia Other Family histor y of Hyperlipidemia; Hypertension Other Family history of Hypertension; Relation Name Status Comments Brother 1 Alive Brother 2 Father 1 (Age 38) Father 2 Mother 1 Alive Mother 2 Other Social History Tobacco Use Types Packs/Day Years Used Date Smoking Tobacco: Never Tobacco Cessation:Counseling Given: Not Answered Alcohol Use Standard Drinks/Week Comments Yes 0 (1 standard drink = 0.6 oz pur e alcohol) AUDIT-C Answer Date Recorded Q1: How often do you have a drink containing alc ohol? 2-3 times a week 05/02/2024 Q2: How many drinks containi ng alcohol do you have on a typical day when you are drinking? 1 or 2 05/02/2024 Q3: How often do you have si x or more drinks on one occasion? Never 05/02/2024 Comments No Sex and Gender Information Value Date Recorded Sex Assigned at Not on file Legal Sex Female 8:36 PM CRUSHER DRY GROUND MICA Gender Identity Not on file Sexual Orientation Not on file Obstetrics History Para Term AB IAB SAB Ectopic Multiple Livin g Live Births 3 2 2 1 1 Date Outcome GA Total Labor Labor/2nd/3rd Weight Sex Type Anes PTL Nona A1 A5 Name Clin 2003 Term 37w0 d 3.402 kg (7 lb 8 oz) M Vag-Sp ont 2006 Term 40w0 d 3.544 kg (7 lb 13 oz) M Vag-Sp ont 2011 IAB Last Filed Vital Signs Vital Sign Reading Time Taken Comments Blood Pressure 140/90 06/21/2024 12:58 PM CRUSHER DRY GROUND MICA Pulse 72 06/21/2024 12:58 PM CRUSHER DRY GROUND MICA Temperature - - Respiratory Rate - - Oxygen Saturation 99% 01/11/2017 2:51 PM CDT Inhaled Oxygen Concentration - - Weight 81 kg (178 lb 9.6 oz) 06/21/2024 12:58 PM CRUSHER DRY GROUND MICA Height 170.2 cm (5' 7.01 ) 06/21/2024 12:[address] Body Mass Index 27.97 06/21/2024 12:58 PM CRUSHER DRY GROUND MICA Plan of Treatment Health Maintenance Due Date Last Done Comments Cervical Cancer Screening 1969 Colon Cancer Screening-Colonoscopy 1969 Depression Screening 1969 Hepatitis C Screening 1969 DTaP/Tdap/Td Vaccine (1 - Tdap) 1980 Hepatitis B Screening 11/14/1987 Zoster Vaccine (1 of 2) 11/14/2019 Covid-19 Vaccine (3 - season) 2024 09/25/2020, 09/04/2020 Breast Cancer Screening-Mammogram 11/27/2024 11/28/2023, 11/25/2022, 11/04/2021, Additional history exists Regular Well Visit/Exam 18-64 05/02/2025 05/02/2024 Influenza Vaccine Completed 05/23/2024 Pneumococcal vaccine <65 Aged Out No longer eligible based on patient's age to complete this topic Procedures Procedure Name Priority Date/Time Associated Diagnosis Comments SCREENING MAMMOGRAM BILATERAL W ARNOLDO Schedule Routine, Read Routine (OP Routine) 11/28/2023 11:35 AM CDT Screening mammogram, encounter for from Last 3 Months or Most Recently Relevant to Health Maintenance Results * Screening Mammogram Bilateral W Arnoldo (11/28/2023 11:35 AM CDT) Anatomical Region Laterality Modality Breast Bilateral Mammography Narrative 11/29/2023 5:05 PM CDT Mammogram Technique: Bilateral Digital Breast Tomosynthesis, Bilateral C-view 2D Screening mammogram. Views obtained: bilateral craniocaudal and bilateral mediolateral oblique. Computer Aided Detection was performed. Mammogram Findings: The present examination has been compared to prior imaging studies performed at [facility] on 02/04/2015, 04/15/2016, 06/09/2017, 09/07/2018, 09/18/2020, 11/04/2021 and 11/25/2022. The breasts are extremely dense, which lowers the sensitivity of mammography. There is asymmetry in the mid to posterior inner breast on the craniocaudal view of the left breast. There is no suspicious abnormality in the right breast. Impression: Asymmetry in the left breast requires additional evaluation. Diagnostic mammogram and possible ultrasound of the left breast are recommended at this time. OVERALL FINAL ASSESSMENT: BI-RADS CATEGORY 0: Incomplete: Need additional imaging evaluation. Procedure Note Maribel Stewart MD - 11/29/2023 Mammogram Technique: Bilateral Digital Breast Tomosynthesis, Bilateral C-view 2D Screening mammogram. Views obtained: bilateral craniocaudal and bilateral mediolateral oblique. Computer Aided Detection was performed. Mammogram Findings: The present examination has been compared to prior imaging studies performed at [facility] on 02/04/2015, 04/15/2016,06/09/2017, 09/07/2018, 09/18/2020, 11/04/2021 and 11/25/2022. The breasts are extremely dense, which lowers the sensitivity of mammography. There is asymmetry in the mid to posterior inner breast on thecraniocaudal view of the left breast. There is no suspicious abnormality in the right breast. Impression: Asymmetry in the left breast requires additional evaluation. Diagnostic mammogram and possible ultrasound of the left breast are recommended at this time. OVERALL FINAL ASSESSMENT: BI-RADS CATEGORY 0: Incomplete: Need additional imaging evaluation. us Self Screening Mammogram IMG MAMMO PROCEDURES Fi nal Result from Last 3 Months or Most Recently Relevant to Health Maintenance Insurance [employer] Member Subscriber Plan / Payer (Ef fective 2021-Present) Name:Meggan Hutchinson Relation to Subscriber:Self Name:Meggan Hutchinson Payer ID:[id number] (NA) Type:[facility] HMO/PPO Address: [address] [employer] Care Teams Culinary Instructor Relationship Specialty Start Date End Date Ismael Donald MD [address] [place] [address] [place] [address] PCP - General Family Medicine 09/12/23
--- OUTSIDE RECORDS SUMMARY | 2024-11-09 09:16 | XMS_ITS | Encounter Summary ---
Author Organization [facility] Address [address] [place] [address] Care Team Providers Care Robotics Engineer Name Role Phone Hossein De Guzman MD Primary Care Provider [phone] Encounter Details Date Type Department Care Team (Late st Contact Info) Description 05/12/2007 Outpatient Historical [facility]'s [facility] Medical [place] [address] [place] [address] Torie Puckett MD [address] [address] Social History Tobacco Use Types Packs/Day Years Used Date Smoking Tobacco: Never Assessed Comments Unknown Sex and Gender Information Value Date Recorded Sex Assigned at Not on file Legal Sex Female 3:05 AM ORACLE DBA Gender Identity Not on file Sexual Orientation Not on file documented as of this encounter Plan of Treatment Not on file documented as of this encounter Visit Diagnoses Not on filedocumented in this encounter Care Teams Robotics Engineer Relationship Specialty Start Date End Date Hossein De Guzman MD [address] [place] [address] PCP - General Family Practice 07/29/17 documented as of this encounter
--- OUTSIDE RECORDS SUMMARY | 2024-11-09 09:16 | XMS_ITS | Encounter Summary ---
Author Organization [facility] Address [address] [place] [address] Care Team Providers Care Enterprise Sales Person Name Role Phone Hossein De Guzman MD Primary Care Provider [phone] Encounter Details Date Type Department Care Team (Late st Contact Info) Description 04/14/2007 Outpatient Historical [facility]'s [facility] Medical [place] [address] [place] [address] Torie Puckett MD [address] [address] Social History Tobacco Use Types Packs/Day Years Used Date Smoking Tobacco: Never Assessed Comments Unknown Sex and Gender Information Value Date Recorded Sex Assigned at Not on file Legal Sex Female 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
--- OUTSIDE RECORDS SUMMARY | 2024-11-09 09:16 | XMS_ITS | Encounter Summary ---
Author Organization [facility] Address [address] [place] [address] Care Team Providers Care Casing Finisher And Stuffer Name Role Phone Hossein De Guzman MD Primary Care Provider [phone] Encounter Details Date Type Department Care Team (Late st Contact Info) Description 05/28/2007 Outpatient Historical [facility]'s [facility] Medical [place] [address] [place] [address] Torie Puckett MD [address] [address] Social History Tobacco Use Types Packs/Day Years Used Date Smoking Tobacco: Never Assessed Comments Unknown Sex and Gender Information Value Date Recorded Sex Assigned at Not on file Legal Sex Female 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
--- OUTSIDE RECORDS SUMMARY | 2024-11-09 09:16 | XMS_ITS | Referral Summary ---
Author Organization [facility] [address] Address [address] [place] [address] Care Team Providers Care Material Handler 1St Shift Name Role Phone Ismael Donald MD Primary Care Provider [phone] Allergies Active Allergy Reactions Criticality Noted Date [...] 06/21/2024 Assessment & Plan (06/21/2024 1:28 PM FACS TEACHER): Swabs for BV, yeast, GC, CT, trich [...] answered. Assessment & Plan (09/02/2023 2:08 PM FACS TEACHER): We discussed some of the typical symptoms [...] MDCK, Preservative Free, Antibiotic Free, Intramuscular 05/23/2024 Social History Tobacco Use Types Packs/Day Years [...] on file Legal Sex Female 8:36 PM FACS TEACHER Gender Identity Not on file Sexual Orientation Not on file Last Filed Vital Signs Vital Sign Reading Time Taken Comments Blood Pressure 140/90 06/21/2024 12:58 PM FACS TEACHER Pulse 72 06/21/2024 12:58 PM FACS TEACHER Temperature - - Respiratory Rate - - Oxygen Saturation 99% 01/11/2017 2:51 PM CDT Inhaled Oxygen Concentration - - Weight 81 kg (178 lb 9.6 oz) 06/21/2024 12:58 PM FACS TEACHER Height 170.2 cm (5' 7.01 ) 06/21/2024 12:[address] Body Mass Index 27.97 06/21/2024 12:58 PM FACS TEACHER Plan of Treatment Not on file Procedures Procedure Name Priority Date/Time Associated Diagnosis [...] compared to prior imaging studies performed at [facility] on 02/04/2015, 04/15/2016, 06/09/2017, 09/07/2018, 09/18/2020, 11/04/2021 [...] compared to prior imaging studies performed at [facility] on 02/04/2015, 04/15/2016,06/09/2017, 09/07/2018, 09/18/2020, 11/04/2021 and [...] Most Recently Relevant to Health Maintenance Insurance [facility] [employer] Member Subscriber Plan / Payer (Ef fective 2021-Present) Name:Meggan Hutchinson Relation to Subscriber:Self Name:Meggan Hutchinson Payer ID:[id number] ([facility]) Type:[facility] HMO/PPO Address: [address] [facility] [facility] [employer] Care Teams Material Handler 1St Shift Relationship Specialty Start Date End Date Ismael Donald MD [address] [place] [address] [address] PCP - General Family Medicine 09/12/23
--- OUTSIDE RECORDS SUMMARY | 2024-11-09 09:16 | XMS_ITS | Encounter Summary ---
Author Organization [facility] Address [address] [place] [address] Care Team Providers Care Petroleum Terminal Plant Operator Name Role Phone Hossein De Guzman MD Primary Care Provider [phone] Encounter Details Date Type Department Care Team (Late st Contact Info) Description 05/26/2007 Outpatient Historical [facility] Medical [place] [address] [place] [address] Torie Puckett MD [address] [address] Social History Tobacco Use Types Packs/Day Years Used Date Smoking Tobacco: Never Assessed Comments Unknown Sex and Gender Information Value Date Recorded Sex Assigned at Not on file Legal Sex Female 3: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
--- OUTSIDE RECORDS SUMMARY | 2024-11-09 09:16 | XMS_ITS | Encounter Summary ---
Author Organization [facility] Address [address] [place] [address] Care Team Providers Care Trommel Tender Name Role Phone Hossein De Guzman MD Primary Care Provider [phone] Encounter Details Date Type Department Care Team (Late st Contact Info) Description 05/19/2007 Outpatient Historical [facility]'s [facility] Medical [place] [address] [place] [address] Torie Puckett MD [address] [address] Social History Tobacco Use Types Packs/Day Years Used Date Smoking Tobacco: Never Assessed Comments Unknown Sex and Gender Information Value Date Recorded Sex Assigned at Not on file Legal Sex Female 3:05 AM COCOA PRESS OPERATOR Gender Identity Not on file Sexual Orientation Not on file documented as of this encounter Plan of Treatment Not on file documented as of this encounter Visit Diagnoses Not on filedocumented in this encounter Care Teams Trommel Tender Relationship Specialty Start Date End Date Hossein De Guzman MD [address] [place] [phone] PCP - General Family Practice 07/29/17 documented as of this encounter
--- OUTSIDE RECORDS SUMMARY | 2024-11-09 09:16 | XMS_ITS | Encounter Summary ---
Author Organization [facility] Address [address] [place] [address] Care Team Providers Care Ripsaw Operator Name Role Phone Hossein De Guzman MD Primary Care Provider [phone] Encounter Details Date Type Department Care Team (Late st Contact Info) Description 07/20/2007 Outpatient Historical [facility] Medical [place] [address] [place] [address] Torie Puckett MD [address] [address] Social History Tobacco Use Types Packs/Day Years Used Date Smoking Tobacco: Never Assessed Comments Unknown Sex and Gender Information Value Date Recorded Sex Assigned at Not on file Legal Sex Female 3:05 AM BUSINESS LINE CONTROLLER Gender Identity Not on file Sexual Orientation Not on file documented as of this encounter Plan of Treatment Not on file documented as of this encounter Visit Diagnoses Not on filedocumented in this encounter Care Teams Ripsaw Operator Relationship Specialty Start Date End Date Hossein De Guzman MD [address] [place] [address] PCP - General Family Practice 07/29/17 documented as of this encounter
[2024-11-09 12:56] LABS: Basophils Percent Auto 0.7 % (0.2-1.2); Eosinophils Absolute Auto 0.6 K/mm3 (0-0.3); Eosinophils Percent Auto 11.7 % (0-4.4); Hematocrit 42.5 % (37.0-47.0); Hemoglobin 13.7 g/dL (12.0-15.0); Immature Granulocyte Absolute 0.02 K/mm3 (0.00-0.031); Immature Granulocyte Percent A 0.4 % (0-0.5); Lymphocytes Absolute Auto 2.44 K/mm3 (0.9-3.2); Lymphocytes Percent Auto 45.3 % (18.3-44.2); Mean Corpuscular HGB Conc 32.2 g/dl (32-36); Mean Corpuscular Hemoglobin 30.6 pg (26-34); Mean Corpuscular Volume 95.1 fl (80-100); Mean Platelet Volume 9.9 fl (7.4-10.4); Monocytes Absolute Auto 0.5 K/mm3 (0.1-0.6); Monocytes Percent Auto 8.3 % (2.6-8.5); Neutrophils Absolute Auto 1.8 K/mm3 (1.3-6.7); Neutrophils Percent Auto 33.6 % (45.5-73.1); Platelet Count Result 255 k/mm3 (150-375); Red Blood Count 4.47 M/mm3 (4.2-5.4); Red Cell Distribution Width 12.9 % (11.5-14.5); White Blood Count 5.4 K/mm3 (4.5-10.0)
[2024-11-09 12:57] LABS: Alanine Aminotransferase 18 U/L (6-35); Alkaline Phosphatase 75 U/L (38-126); Anion Gap 8 mmol/L (4-12); Aspartate Amino Transferase 36 U/L (14-36); Bilirubin,Total 0.5 mg/dL (0.2-1.3); Blood Urea Nitrogen 9 mg/dL (7-17); Calcium 9.2 mg/dL (8.4-10.2); Carbon Dioxide 26 mmol/L (22-30); Chloride 106 mmol/L (98-107); Cholesterol 246 mg/dL (0-200); Estimated Glomerular Filt Rate > 60; Glucose 90 mg/dL (65-110); HDL Direct 63 mg/dL; Potassium 4.6 mmol/L (3.4-5.0); Sodium 140 mmol/L (137-145); Triglycerides 69 mg/dL (<150)
[2024-11-09 13:08] LABS: LDL Cholesterol Direct 133 mg/dL
[2024-11-09 13:27] LABS: Thyroid Stimulating Hormone 0.996 uIU/mL (0.465-4.680)
[2024-11-09 14:40] LABS: Hemoglobin A1C 5.5 % (<5.7)
== END 2024-11-09 08:56 | disposition home or self-care (01) ==
LOC: ANHGOSHLAB 08:56
PROVIDERS: PCP Nurse Practitioner Family; Visit Provider Nurse Practitioner Family
DX: F41.1 Generalized anxiety disorder (principal); E78.00 Pure hypercholesterolemia, unspecified; R53.83 Other fatigue; R73.01 Impaired fasting glucose
CPT/HCPCS: 36415; 80053; 80061; 83036; 84443; 85025